=== PATIENT | male | born 1975 | race Caucasian/White ===

== ENCOUNTER 2024-09-06 10:30 | Outpatient (OUT) | payer OTHER, SELFPAY ==
--- NOTE | 2024-09-06 10:45 | XR_ITS ---
The [address] [address] Patient Name: NAI STORM MRN: [id number] date: 1975 Sex: M Assigned Patient Location: LAB Current Patient Location: Accession/Order Number: [id number] Exam Date: 09/06/2024 10:48 Report Date: 09/08/2024 04:42 At the request of: DAE LUNA Procedure: XR abdomen 1V EXAMINATION: XR abdomen 1V HISTORY: Left Upper Quadrant Pain COMPARISON: No relevant comparison available. FINDINGS: BOWEL GAS PATTERN: No abnormal dilation or deviation. Moderate stool burden. CALCIFICATIONS: 2 small calcifications within lower right pelvis; phleboliths versus distal ureteral stones. OTHER: Negative. No abnormal gaseous collections. XR/XR abdomen 1V IMPRESSION: 1. Normal bowel gas pattern. No obstruction or ileus. 2. Moderate stool burden. 3. Right pelvic phleboliths versus distal ureteral stones (3 mm). No prior studies for comparison. Electronically authenticated by: INDIA PEÑA Date: 09/08/2024 04:42
== END 2024-09-06 10:31 | disposition home or self-care (01) ==
LOC: LAB 10:40
PROVIDERS: PCP Nurse Practitioner Family; Visit Provider Nurse Practitioner Family
DX: R10.12 Left upper quadrant pain (principal); I87.8 Other specified disorders of veins; I86.2 Pelvic varices
CPT/HCPCS: 74018

== ENCOUNTER 2024-09-07 10:58 | Outpatient (OUT) | payer OTHER, SELFPAY ==
[2024-09-07 11:16] LABS: Basophils Absolute Auto 0.1 10^3/uL (0.0-0.1); Basophils Percent Auto 0.7 % (0.2-2.0); Eosinophils Absolute Auto 0.3 10^3/uL (0.0-0.7); Eosinophils Percent Auto 2.4 % (0.9-7.0); Hematocrit 43.1 % (42.0-54.0); Hemoglobin 14.4 g/dL (14.0-18.0); Immature Granulocytes Abs Auto 0.03 10^3/uL (0.00-0.03); Immature Granulocytes Pct Auto 0.2 % (0.0-0.5); Lymphocytes Absolute Auto 4.9 10^3/uL (1.2-3.8); Lymphocytes Percent Auto 37.1 % (20.5-60.0); Mean Corpuscular HGB Conc 33.4 g/dL (29.9-35.2); Mean Corpuscular Hemoglobin 30.3 pg (25.9-34.0); Mean Corpuscular Volume 90.5 fL (80.0-94.0); Mean Platelet Volume 8.9 fL (9.5-13.5); Monocytes Absolute Auto 1.1 10^3/uL (0.3-0.8); Monocytes Percent Auto 8.4 % (1.7-12.0); Neutrophils Absolute Auto 6.8 10^3/uL (1.4-6.5); Neutrophils Percent Auto 51.2 % (43.0-75.0); Platelet Count 324 10^3/uL (150-450); Red Blood Count 4.76 10^6/uL (4.70-6.10); White Blood Count 13.2 10^3/uL (4.0-11.0)
[2024-09-07 11:33] LABS: Estimated Average Glucose 111 mg/dL; Glycohemoglobin A1C 5.5 % (4.5-6.2)
[2024-09-07 12:00] LABS: Alanine Aminotransferase 19 U/L (16-63); Albumin Globulin Ratio 0.9; Albumin Level 3.2 g/dL (3.4-5.0); Alkaline Phosphatase 73 U/L (46-116); Amylase 67 U/L (25-115); Anion Gap 9.4; Aspartate Amino Transferase 16 U/L (15-37); BUN Creatinine Ratio 10.6; Bilirubin Total 0.6 mg/dL (0.2-1.0); Calcium 8.3 mg/dL (8.5-10.1); Carbon Dioxide 30.3 mmol/L (21.0-32.0); Chloride 107 mmol/L (98-107); Chol HDL Ratio 4.9; Cholesterol 177 mg/dL (<=200); Estimated GFR (African America >60 (>=60 mL/min/1.73m^2); Estimated GFR (Non-African Ame >60 (>=60 mL/min/1.73m^2); Free T3 2.45 pg/mL (2.18-3.98); Globulin 3.4 g/dL; Glucose 89 mg/dL (74-106); HDL Cholesterol 36 mg/dL (40-60); Potassium 3.7 mmol/L (3.5-5.1); Prostate Specific Antigen Scrn 0.81 ng/mL (<=4.00); Sodium 143 mmol/L (136-145); Total Protein 6.6 g/dL (6.4-8.2); Triglycerides 136 mg/dL (<=150); Uric Acid 3.7 mg/dL (3.5-7.2); VLDL CHOLESTEROL 27.2 mg/dL
[2024-09-08 11:08] LABS: Insulin 8.5 uIU/mL (2.6-24.9)
== END 2024-09-07 10:59 | disposition home or self-care (01) ==
LOC: LAB 10:58
PROVIDERS: PCP Nurse Practitioner Family; Visit Provider Nurse Practitioner Family
DX: Z00.00 Encounter for general adult medical examination without abnormal findings (principal); R10.12 Left upper quadrant pain
CPT/HCPCS: 36415; 80053; 80061; 82150; 83036; 83525; 83690; 84436; 84443; 84481; 84550; 85025; G0103

== ENCOUNTER 2024-10-29 09:46 | Outpatient (OUT) | payer OTHER, SELFPAY ==
--- NOTE | 2024-10-29 09:50 | US_ITS ---
[address] [address] Patient Name: NAI STORM MRN: [id number] date: 1975 Sex: M Assigned Patient Location: US Current Patient Location: Accession/Order Number: [id number] Exam Date: 10/29/2024 10:00 Report Date: 10/29/2024 10:52 At the request of: DAE LUNA Procedure: US abdomen complete EXAMINATION: US abdomen complete HISTORY: Left Upper Quadrant Abdominal Pain COMPARISON: No relevant comparison available. FINDINGS: The liver is normal in size, contour and echotexture. Hepatopedal flow in the main portal vein The gallbladder is normal. The wall measures 1.7 mm. the common bile duct measures 3 mm. Negative sonographic Cota sign The visualized pancreas is normal The right kidney is normal measuring 11.6 x 5.7 x 4.8 cm The left kidney is normal measuring 9.1 x 5.7 x 6.0 cm Visualized proximal aorta and IVC are normal The spleen measures 9.2 cm US/US abdomen complete IMPRESSION: No acute abnormality Electronically authenticated by: OSMAR WALTER Date: 10/29/2024 10:52
--- NOTE | 2024-10-29 09:50 | XR_ITS ---
The [address] [address] Patient Name: NAI STORM MRN: [id number] date: 1975 Sex: M Assigned Patient Location: Current Patient Location: Accession/Order Number: [id number] Exam Date: 10/29/2024 10:00 Report Date: 10/30/2024 09:55 At the request of: DAE LUNA Procedure: XR shoulder RT min 2V PROCEDURE: XR shoulder RT min 2V HISTORY: Right Shoulder Pain COMPARISON: None. FINDINGS: BONES:Slight widening of the acromioclavicular joint, 11 mm. No undersurface osteophytes or appreciable fracture. Unremarkable humeral head and glenohumeral joint. SOFT TISSUES:No visible soft tissue swelling. EFFUSION:None visible. OTHER: Negative. XR/XR shoulder RT min 2V IMPRESSION: 1. Borderline widening of the acromioclavicular joint; acute versus chronic strain? 2. No fracture or dislocation. 3. No significant degenerative joint disease. Electronically authenticated by: INDIA PEÑA Date: 10/30/2024 09:55
--- OUTSIDE RECORDS SUMMARY | 2024-10-29 10:04 | XMS_ITS | CCD ---
Author Organization [facility] Care Team Providers Care Contact Center Manager Name Role Phone Kevin Messina Unavailable DR AAMIR HUNTER Admitting Unavailable DALE, DR AAMIR Sainz Attending Unavailable OBBRANDO, DR ARNDT Primary Care Unavailable DALE, DR AAMIR Sainz Consulting Unavailable SIDDHARTH, DR ARNDT Primary Care Unavailable ROBBI ., THU Admitting Unavailable ROBBI ., THU Attending Unavailable CASEY, DR INDIA Sainz Consulting Unavailable MARY ., PENNIE LARSON Consulting Unavailabl e SIDDHARTH, DR ARNDT Primary Care Unavailable SANDRITA FERRARA Admitting Unavailable SANDRITA FERRARA Attending Unavailable SANDRITA FERRARA Consulting Unavailable ObererKevin Primary Care Unavailable Kevin Messina Attending Unavailable Objoanner Kevin Admitting Unavailable Kevin Messina Attending Unavailable Siddharth Kevin Admitting Unavailable Objoanner Kevin Primary Care Unavailable DO Kevin Messina Primary Care Provider DO Kevin Messina Attending Provider [phone] Medications Current Medications Medication Drug Class(es) Dates Sig (Normalized) Sig (Original) Acetaminophen (4 sources) Acetaminophen Ac tive Problems Active Problems Problem Classification Problem Date Documented Date Episodic/Chronic Adjustment disorders (8 sources) Adjustment disorder with mixed emotional features; Translations: [Adjustment disorder with mixed anxiety and depressed mood] Chronic Anxiety disorders (6 sources) Panic disorder; Translations: [Panic disorder [episodic paroxysmal anxiety]] Chronic Diabetes mellitus without complication (4 sources) Impaired fasting glucose; Translations: [Hyperglycemia] Episodic Disorders of lipid metabolism (8 sources) Hypercholesterolemia; Translations: [Pure hypercholesterolemia, unspecified] Chronic E Codes: Natural/environment (1 source) Exposure to other specified factors, initial encounter; Translations: [EXPOSURE OTHER SPEC FACTORS INITIAL] Onset: 12-05-2022 Episodic Esophageal disorders (3 sources) Gastroesophageal reflux disease; Translations: [Gastro-esophageal reflux disease without esophagitis] Chronic Essential hypertension (3 sources) Elevated blood pressure; Translations: [Essential (primary) hypertension] Chronic Headache; including migraine (10 sources) Cluster headache; Translations: [Cluster headache syndrome, unspecified, not intractable] Chronic Other circulatory disease (1 source) Hemorrhage, not elsewhere classified Episodic Other connective tissue disease (3 sources) Disorder of rotator cuff; Translations: [Unspecified rotator cuff tear or rupture of right shoulder, not specified as traumatic] Episodic Other disorders of stomach and duodenum (3 sources) Nonulcer dyspepsia; Translations: [Functional dyspepsia] Episodic Other nutritional; endocrine; and metabolic disorders (1 source) Abnormal weight gain Episodic Other skin disorders (3 sources) Acne vulgaris; Translations: [Acne vulgaris] Episodic Other upper respiratory disease (3 sources) Allergic rhinitis due to pollen; Translations: [Allergic rhinitis due to pollen] Chronic Residual codes; unclassified (7 sources) FH: Cardiovascular disease; Translations: [Family history of ischemic heart disease and other diseases of the circulatory system] Episodic Residual codes; unclassified (3 sources) Family history of ischemic heart disease and other diseases of the circulatory system Onset: 12-14-2021 Resolved: 12-14-2021 Episodic Residual codes; unclassified (5 sources) Family history of ischemic heart disease; Translations: [Family history of ischemic heart disease and other diseases of the circulatory system] Episodic Spondylosis; intervertebral disc disorders; other back problems (20 sources) Lumbar spondylosis; Translations: [Spondylosis without myelopathy or radiculopathy, lumbar region] Onset: 12-14-2021 Resolved: 12-14-2021 Chronic Spondylosis; intervertebral disc disorders; other back problems (3 sources) Lumbago with sciatica, right side; Translations: [Cervicalgia] Onset: 06-14-2022 Episodic Substance-related disorders (13 sources) Smoker; Translations: [Nicotine dependence, unspecified, uncomplicated] Onset: 12-14-2021 Resolved: 12-16-2021 Chronic Superficial injury; contusion (4 sources) Contusion of left forearm, initial encounter; Translations: [CONTUSION LEFT FOREARM INITIAL ENC] Onset: 12-04-2022 Episodic Unclassified (2 sources) LOW BACK PAIN, UNSPECIFIED; Translations: [LOW BACK PAIN, UNSPECIFIED] Onset: 06-14-2022 Unclassified (1 source) Encounter for general adult medical examination without abnormal findings; Translations: [Encounter for general adult medical examination without abnormal findings] Onset: 12-26-2022 Unclassified (1 source) Z82.49 - Family history of ischemic heart disease and other diseases of the circulatory system; Translations: [Z82.49 - Family history of ischemic heart disease and other diseases of the circulatory system] Onset: 01-12-2022 Past or Other Problems Problem Classification Problem Date Documented Da te Episodic/Chronic Other upper respiratory infections (4 sources) Acute pharyngitis, unspecified; Translations: [ACUTE PHARYNGITIS UNSPECIFIED] Onset: 01-19-2022 Episodic Unclassified (2 sources) Cough R05.9 Onset: 12-14-2021 Resolved: 12-16-2021 Unclassified (1 source) LOW BACK PAIN, UNSPECIFIED; Translations: [LOW BACK PAIN, UNSPECIFIED] Onset: 06-10-2022 Results Test Name Value Interpretation Reference Range Facility A1C with Estimated Average G [facility] 12-26-2022 Glucose [Mass/Vol] 114 mg/dL Normal [facility] Comment on above: Order Comment: Reaso n for Exam Adult general medical examination Result Comment: PERF ORMED BY: [facility] [address] [place] [address] PATHOLOGIST BUSINESS MANAGEMENT INTERN MOISES SHEPHERD M.D. Performed By: #### A 1C [facility] eA ####[place] [id number] [place] [id number] [facility] HbA1c (Bld) [Mass fraction] 5.6 % Normal 4.3-5.6 [facility] Comment on above: Order Comment: Reaso n for Exam Adult general medical examination Result Comment: Incr eased risk for diabetes: 5.7 - 6.4 diabetes: >6.4 glycemic control for adults with diabetes: <7.0 Performed By: #### A 1C [facility] eA ####[place] [id number] [place] [id number] [facility] Alanine aminotransferase [En zymatic activity/volume] in Serum or PlasmaOrdered By: Kevin Messina on 12-26-2022 ALT [Catalytic activity/Vol] 36 U/L 7- [facility] Albumin [Mass/volume] in Ser um or Plasma by Bromocresol green (BCG) dye binding methoOrdered By: Kevin Messina on 12-26-2022 Albumin BCG dye [Mass/Vol] 4.3 g/dL 3.5-5.7 [facility] Alkaline phosphatase [Enzyma tic activity/volume] in Serum or PlasmaOrdered By: Kevin Messina on 12-26-2022 ALP [Catalytic activity/Vol] 66 U/L 34-104 [facility] Aspartate aminotransferase [ Enzymatic activity/volume] in Serum or PlasmaOrdered By: Kevin Messina on 12-26-2022 AST [Catalytic activity/Vol] 23 U/L 13-39 [facility] Basic Metabolic Panelon 12-01 Anion gap [Moles/Vol] 9.0 mmol/L Normal 6.0-15.0 [facility] Comment on above: Order Comment: NOT F ASTING Reason for Exam Adult general medical examination Performed By: #### B MP, HEPATIC, LIPID #### [facility] [address] [place] [id number] [facility] Calcium [Mass/Vol] 8.9 mg/dL Normal 8.6-10.3 [facility] Comment on above: Order Comment: NOT F ASTING Reason for Exam Adult general medical examination Performed By: #### B MP, HEPATIC, LIPID #### [facility] [address] [place] [address] [place] Chloride [Moles/Vol] 106 mmol/L Normal 98-107 [facility] Comment on above: Order Comment: NOT F ASTING Reason for Exam Adult general medical examination Performed By: #### B MP, HEPATIC, LIPID #### [facility] [address] [place] [address] [place] CO2 [Moles/Vol] 27.9 mmol/L Normal 21.0-31.0 [facility] Comment on above: Order Comment: NOT F ASTING Reason for Exam Adult general medical examination Performed By: #### B MP, HEPATIC, LIPID #### [facility] [address] [place] [address] [place] Creatinine [Mass/Vol] 0.82 mg/dL Normal 0.70-1.30 [facility] Comment on above: Order Comment: NOT F ASTING Reason for Exam Adult general medical examination Performed By: #### B MP, HEPATIC, LIPID #### [facility] [address] [place] [address] [place] GFR/1.73 sq M.predicted MDRD (S/P/Bld) [Vol rate/Area] mL/min/{1.73_m2} Normal [facility] Comment on above: Order Comment: NOT F ASTING Reason for Exam Adult general medical examination Performed By: #### B MP, HEPATIC, LIPID #### [facility] [address] Glucose [Mass/Vol] 96 mg/dL Normal 70-100 [facility] Comment on above: Order Comment: NOT F ASTING Reason for Exam Adult general medical examination Result Comment: [facility] Glucose Reference Range is dependent on time and content of last meal. Glucose of more than 200 mg/dL in a nonstressed, ambulatory subject supports the diagnosis of Diabetes Mellitus. ADA recommended reference range Performed By: #### B MP, HEPATIC, LIPID #### [facility] [address] [place] [address] [place] Potassium [Moles/Vol] 3.9 mmol/L Normal 3.5-5.1 [facility] Comment on above: Order Comment: NOT F ASTING Reason for Exam Adult general medical examination Performed By: #### B MP, HEPATIC, LIPID #### [facility] [address] [place] [id number] [place] Sodium [Moles/Vol] 139 mmol/L Normal 136-145 [facility] Comment on above: Order Comment: NOT F ASTING Reason for Exam Adult general medical examination Performed By: #### B MP, HEPATIC, LIPID #### [facility] [address] [place] [id number] [place] Urea nitrogen [Mass/Vol] 11 mg/dL Normal 7-25 [facility] Comment on above: Order Comment: NOT F ASTING Reason for Exam Adult general medical examination Performed By: #### B MP, HEPATIC, LIPID #### [facility] [address] [place] [id number] [facility] Basophils Auto (Bld) [#/Vol] Ordered By: Kevin Messina on 12-26-2022 Basophils (Bld) [#/Vol] 0.1 10*3/uL 0.0-0.2 [facility] Basophils/100 WBC Auto (Bld) Ordered By: Kevin Messina on 12-26-2022 Basophils/100 WBC (Bld) 0.7 % . [facility] Bilirubin.direct [Mass/volum e] in Serum or PlasmaOrdered By: Kevin Messina on 12-26-2022 Bilirubin.direct [Mass/Vol] 0.10 mg/dL 0.03-0.18 [facility] Bilirubin.total [Mass/volume ] in Serum or PlasmaOrdered By: Kevin Messina on 12-26-2022 Bilirubin [Mass/Vol] 0.3 mg/dL 0.3-1.0 [facility] Calcium [Mass/volume] in Ser um or PlasmaOrdered By: Kevin Messina on 12-26-2022 Calcium [Mass/Vol] 8.9 mg/dL 8.6-10.3 [facility] Carbon dioxide, total [Moles /volume] in Serum or PlasmaOrdered By: Kevin Messina on 12-26-2022 CO2 [Moles/Vol] 27.9 mmol/L 21.0-31.0 [facility] Chloride [Moles/volume] in S samuel or PlasmaOrdered By: Kevin Messina on 12-26-2022 Chloride [Moles/Vol] 106 mmol/L 98-107 [facility] Cholesterol [Mass/volume] in Serum or PlasmaOrdered By: Kevin Messina on 12-26-2022 Cholesterol [Mass/Vol] 217 mg/dL 140-200 [facility] Comment on above: Chol less than 200 m g/dl low riskChol 201-239 mg/dl borderline riskChol 240 mg/dl and greater high risk Cholesterol in LDL Calc [Mas s/Vol]Ordered By: Kevin Messina on 12-26-2022 Cholesterol in LDL [Mass/Vol] 145 mg/dL 0-100 [facility] Comment on above: LDL ATP III CLASSIFI CATIONLDL less than 100 mg/dL OptimalLDL 100-129 mg/dL Near or above optimalLDL 130-159 mg/dL Borderline highLDL 160-189 mg/dL HighLDL greater than 189 mg/dL Very high Cholesterol in VLDL Calc [Ma ss/Vol]Ordered By: Kevin Messina on 12-26-2022 Cholesterol in VLDL [Mass/Vol] 29 mg/dL [facility] Complete Blood Count Auto Di ffon 12-26-2022 Basophils (Bld) [#/Vol] 0.1 10*3/uL Normal 0.0-0.2 [facility] Comment on above: Order Comment: Reaso n for Exam Adult general medical examination Result Comment: PERF ORMED BY: [place] [address] PATHOLOGIST BUSINESS MANAGEMENT INTERN MOISES SHEPHERD M.D. Performed By: #### C BC #### [address] Basophils/100 WBC (Bld) 0.7 % Normal . F [facility] Comment on above: Order Comment: Reaso n for Exam Adult general medical examination Performed By: #### C BC #### [facility] [address] [place] [address] Eosinophils (Bld) [#/Vol] 0.4 10*3/uL Normal 0.0-0.45 [facility] Comment on above: Order Comment: Reaso n for Exam Adult general medical examination Performed By: #### C BC #### [facility] [address] [place] [address] Eosinophils/100 WBC (Bld) 3.2 % Normal . [facility] Comment on above: Order Comment: Reaso n for Exam Adult general medical examination Performed By: #### C BC #### [address] Erythrocyte distribution width (RBC) [Ratio] 14.2 % Normal 12.0-14.8 [facility] Comment on above: Order Comment: Reaso n for Exam Adult general medical examination Performed By: #### C BC #### [address] Hematocrit (Bld) [Volume fraction] 44.8 % Normal 38.8-50.0 [facility] Comment on above: Order Comment: Reaso n for Exam Adult general medical examination Performed By: #### C BC #### [address] Hemoglobin (Bld) [Mass/Vol] 14.9 g/dL Normal 13.0-17.0 [facility] Comment on above: Order Comment: Reaso n for Exam Adult general medical examination Performed By: #### C BC #### [address] Lymphocytes (Bld) [#/Vol] 3.1 10*3/uL Normal 1.00-4.8 [facility] Comment on above: Order Comment: Reaso n for Exam Adult general medical examination Performed By: #### C BC #### [address] Lymphocytes/100 WBC (Bld) 27.1 % Normal . [facility] Comment on above: Order Comment: Reaso n for Exam Adult general medical examination Performed By: #### C BC #### [address] MCH (RBC) [Entitic mass] 30.0 pg Normal 27.5-35.2 [facility] Comment on above: Order Comment: Reaso n for Exam Adult general medical examination Performed By: #### C BC #### [address] MCV (RBC) [Entitic vol] 90.2 fL Normal 83.5-[address] [facility] Comment on above: Order Comment: Reaso n for Exam Adult general medical examination Performed By: #### C BC #### [address] Mean Corpuscular HGB Conc 33.2 g/dL Normal 32.5-35.6 [facility] Comment on above: Order Comment: Reaso n for Exam Adult general medical examination Performed By: #### C BC #### [address] [place] [address] [place] Monocytes (Bld) [#/Vol] 1.0 10*3/uL High 0.0-0.8 [facility] Comment on above: Order Comment: Reaso n for Exam Adult general medical examination Performed By: #### C BC #### [facility] [address] [place] [address] Monocytes/100 WBC (Bld) 8.6 % Normal . [facility] Comment on above: Order Comment: Reaso n for Exam Adult general medical examination Performed By: #### C BC #### [facility] [address] [place] [address] Neutrophils (Bld) [#/Vol] 7.0 10*3/uL Normal 1.8-7.7 [facility] Comment on above: Order Comment: Reaso n for Exam Adult general medical examination Performed By: #### C BC #### [facility] [address] [place] [address] [place] Neutrophils/100 WBC (Bld) 60.4 % Normal . [facility] Comment on above: Order Comment: Reaso n for Exam Adult general medical examination Performed By: #### C BC #### [facility] [address] [place] [address] NRBC% 0.1 /100{WBC} Normal 0-0.5 [facility] Comment on above: Order Comment: Reaso n for Exam Adult general medical examination Performed By: #### C BC #### [facility] [address] [place] [address] [place] Platelet mean volume (Bld) [Entitic vol] 7.2 fL Normal 6.6-10.1 [facility] Comment on above: Order Comment: Reaso n for Exam Adult general medical examination Performed By: #### C BC #### [facility] [address] [place] [address] [place] Platelets (Bld) [#/Vol] 307 10*3/uL Normal 150-450 [facility] Comment on above: Order Comment: Reaso n for Exam Adult general medical examination Performed By: #### C BC #### [address] [place] [address] [place] RBC (Bld) [#/Vol] 4.97 10*6/uL Normal 3.90-5.60 [facility] Comment on above: Order Comment: Reaso n for Exam Adult general medical examination Performed By: #### C BC #### [facility] [address] WBC (Bld) [#/Vol] 11.5 10*3/uL High 4.1-10.5 [facility] Comment on above: Order Comment: Reaso n for Exam Adult general medical examination Performed By: #### C BC #### [facility] [address] Creatinine [Mass/volume] in Serum or PlasmaOrdered By: Kevin Messina on 12-26-2022 Creatinine [Mass/Vol] 0.82 mg/dL 0.70-1.30 [facility] Eosinophils Auto (Bld) [#/Vo l]Ordered By: Kevin Messina on 12-26-2022 Eosinophils (Bld) [#/Vol] 0.4 10*3/uL 0.0-0.45 [facility] Eosinophils/100 WBC Auto (Bl d)Ordered By: Kevin Messina on 12-26-2022 Eosinophils/100 WBC (Bld) 3.2 % . [facility] Erythrocyte distribution wid th Auto (RBC) [Ratio]Ordered By: Kevin Messina on 12-26-2022 Erythrocyte distribution width (RBC) [Ratio] 14.2 % 12.0-14.8 [facility] Globulin Calc (S) [Mass/Vol] Ordered By: Kevin Messina on 12-26-2022 Globulin (S) [Mass/Vol] 2.6 g/dL [facility] Glucose [Mass/volume] in Ser um or PlasmaOrdered By: Kevin Messina on 12-26-2022 Glucose [Mass/Vol] 96 mg/dL 70-100 [facility] Comment on above: ADA recommended refe rence rangeRandom Glucose Reference Range is dependent on time and content of last meal. Glucose of more than 200 mg/dL in a nonstressed, ambulatory subject supports the diagnosis of Diabetes Mellitus. Hematocrit Auto (Bld) [Volum e fraction]Ordered By: Kevin Messina on 12-26-2022 Hematocrit (Bld) [Volume fraction] 44.8 % 38.8-50.0 [facility] Hemoglobin [Mass/volume] in BloodOrdered By: Kevin Messina on 12-26-2022 Hemoglobin (Bld) [Mass/Vol] 14.9 g/dL 13.0-17.0 [facility] Hepatic Panelon 12-26-2022 Albumin [Mass/Vol] 4.3 g/dL Normal 3.5-5.7 [facility] Comment on above: Order Comment: NOT F ASTING Reason for Exam Adult general medical examination Performed By: #### B MP, HEPATIC, LIPID #### [facility] [address] Albumin/Globulin [Mass ratio] 1.7 {ratio} Normal [facility] Comment on above: Order Comment: NOT F ASTING Reason for Exam Adult general medical examination Performed By: #### B MP, HEPATIC, LIPID #### [facility] [address] [place] [address] [place] ALP [Catalytic activity/Vol] 66 U/L Normal 34-104 [facility] Comment on above: Order Comment: NOT F ASTING Reason for Exam Adult general medical examination Performed By: #### B MP, HEPATIC, LIPID #### [facility] [address] [place] [address] [place] ALT [Catalytic activity/Vol] 36 U/L Normal 7-52 [facility] Comment on above: Order Comment: NOT F ASTING Reason for Exam Adult general medical examination Performed By: #### B MP, HEPATIC, LIPID #### [facility] [address] [place] [address] [place] AST [Catalytic activity/Vol] 23 U/L Normal 13-39 [facility] Comment on above: Order Comment: NOT F ASTING Reason for Exam Adult general medical examination Performed By: #### B MP, HEPATIC, LIPID #### [facility] [address] [place] [address] [place] Bilirubin [Mass/Vol] 0.3 mg/dL Normal 0.3-1.0 [facility] Comment on above: Order Comment: NOT F ASTING Reason for Exam Adult general medical examination Performed By: #### B MP, HEPATIC, LIPID #### [facility] [address] Bilirubin,Indirect 0.2 mg/dL Normal [facility] Comment on above: Order Comment: NOT F ASTING Reason for Exam Adult general medical examination Performed By: #### B MP, HEPATIC, LIPID #### [facility] [address] Bilirubin.indirect [Mass/Vol] 0.10 mg/dL Normal 0.03-0.18 [facility] Comment on above: Order Comment: NOT F ASTING Reason for Exam Adult general medical examination Performed By: #### B MP, HEPATIC, LIPID #### [address] Globulin (S) [Mass/Vol] 2.6 g/dL Normal F [facility] Comment on above: Order Comment: NOT F ASTING Reason for Exam Adult general medical examination Performed By: #### B MP, HEPATIC, LIPID #### [address] Protein [Mass/Vol] 6.9 g/dL Normal 6.4-8.9 [facility] Comment on above: Order Comment: NOT F ASTING Reason for Exam Adult general medical examination Performed By: #### B MP, HEPATIC, LIPID #### [address] Laboratory - Chemistry and C hemistry - challengeOrdered By: Kevin Messina on 12-26-2022 GFR/1.73 sq M.predicted MDRD (S/P/Bld) [Vol rate/Area] mL/min/{1.73_m2} [facility] Leukocytes [#/volume] correc nina for nucleated erythrocytes in Blood by Automated counOrdered By: Kevin Messina on 12-26-2022 WBC corrected for nucl RBC Auto (Bld) [#/Vol] 11.5 10*3/uL 4.1-10.5 [facility] Lipid Panelon 12-26-2022 Cholesterol [Mass/Vol] 217 mg/dL High 140-200 [facility] Comment on above: Order Comment: NOT F ASTING Reason for Exam Adult general medical examination Result Comment: Chol less than 200 mg/dl low risk Chol 201-239 mg/dl borderline risk Chol 240 mg/dl and greater high risk Performed By: #### B MP, HEPATIC, LIPID #### [facility] [address] [place] [id number] [facility] Cholesterol in HDL [Mass/Vol] 43 mg/dL Normal 29-71 [facility] Comment on above: Order Comment: NOT F ASTING Reason for Exam Adult general medical examination Result Comment: HDL CHOL ATP-III CLASSIFICATION Cardiovascular Risk HDL > or equal to 60 mg/dL LOW HDL < 40 mg/dL HIGH Performed By: #### B MP, HEPATIC, LIPID #### [facility] [address] Cholesterol.total/Choles terol in HDL [Mass ratio] 5.0 {ratio} Normal <5.0 [facility] Comment on above: Order Comment: NOT F ASTING Reason for Exam Adult general medical examination Result Comment: PERF ORMED BY: [place] [address] PATHOLOGIST BUSINESS MANAGEMENT INTERN MOISES SHEPHERD M.D. Performed By: #### B MP, HEPATIC, LIPID #### [facility] [address] [place] [address] [facility] LDL Cholesterol,Calculated 145 mg/dL High 0-100 [facility] Comment on above: Order Comment: NOT F ASTING Reason for Exam Adult general medical examination Result Comment: LDL ATP III CLASSIFICATION LDL less than 100 mg/dL Optimal LDL 100-129 mg/dL Near or above optimal LDL 130-159 mg/dL Borderline high LDL 160-189 mg/dL High LDL greater than 189 mg/dL Very high Performed By: #### B MP, HEPATIC, LIPID #### [facility] [address] [place] [id number] [place] Triglyceride w/Reflex 145 mg/dL Normal 0-149 [facility] Comment on above: Order Comment: NOT F ASTING Reason for Exam Adult general medical examination Result Comment: TRIG ATP III CLASSIFICATION TRIG less than 150 mg/dL Normal TRIG 150-199 mg/dL Borderline high TRIG 200-500 mg/dL High TRIG greater than 500 mg/dL Very high Standard traceable to the Center for Disease Conrtrol and Prevention (CDC) test method. Performed By: #### B MP, HEPATIC, LIPID #### [facility] [address] VLDL CHOLESTEROL 29 mg/dL Normal [facility] [facility] Comment on above: Order Comment: NOT F ASTING Reason for Exam Adult general medical examination Performed By: #### B MP, HEPATIC, LIPID #### [facility] [address] Lymphocytes Auto (Bld) [#/Vo l]Ordered By: Kevin Messina on 12-26-2022 Lymphocytes (Bld) [#/Vol] 3.1 10*3/uL 1.00-4.8 [facility] Lymphocytes/100 WBC Auto (Bl d)Ordered By: Kevin Messina on 12-26-2022 Lymphocytes/100 WBC (Bld) 27.1 % . [facility] MCH Auto (RBC) [Entitic mass ]Ordered By: Kevin Messina on 12-26-2022 MCH (RBC) [Entitic mass] 30.0 pg 27.5-35.2 [facility] MCHC Auto (RBC) [Mass/Vol]Or dered By: Kevin Messina on 12-26-2022 MCHC (RBC) [Mass/Vol] 33.2 g/dL 32.5-35.6 [facility] MCV Auto (RBC) [Entitic vol] Ordered By: Kevin Messina on 12-26-2022 MCV (RBC) [Entitic vol] 90.2 fL 83.5-[address] [facility] Monocytes Auto (Bld) [#/Vol] Ordered By: Kevin Messina on 12-26-2022 Monocytes (Bld) [#/Vol] 1.0 10*3/uL 0.0-0.8 [facility] Monocytes/100 WBC Auto (Bld) Ordered By: Kevin Messina on 12-26-2022 Monocytes/100 WBC (Bld) 8.6 % . F [facility] Neutrophils Auto (Bld) [#/Vo l]Ordered By: Kevin Messina on 12-26-2022 Neutrophils (Bld) [#/Vol] 7.0 10*3/uL 1.8-7.7 [facility] Neutrophils/100 WBC Auto (Bl d)Ordered By: Kevin Messina on 12-26-2022 Neutrophils/100 WBC (Bld) 60.4 % . [facility] No Panel InformationOrdered By: Kevin Messina on 12-26-2022 Pharmacy Creatinine Clearance (Chem N/A [facility] Nucleated erythrocytes [Pres ence] in Blood by Automated countOrdered By: Kevin Messina on 12-26-2022 Nucleated RBC Auto Ql (Bld) 0.1 /100{WBC} 0-0.5 [facility] Platelet mean volume Auto (B ld) [Entitic vol]Ordered By: Kevin Messina on 12-26-2022 Platelet mean volume (Bld) [Entitic vol] 7.2 fL 6.6-10.1 [facility] Platelets Auto (Bld) [#/Vol] Ordered By: Kevin Messina on 12-26-2022 Platelets (Bld) [#/Vol] 307 10*3/uL 150-450 [facility] Potassium [Moles/volume] in Serum or PlasmaOrdered By: Kevin Messina on 12-26-2022 Potassium [Moles/Vol] 3.9 mmol/L 3.5-5.1 [facility] Protein [Mass/volume] in Ser um or PlasmaOrdered By: Kevin Messina on 12-26-2022 Protein [Mass/Vol] 6.9 g/dL 6.4-8.9 [facility] RBC Auto (Bld) [#/Vol]Ordere d By: Kevin Messina on 12-26-2022 RBC (Bld) [#/Vol] 4.97 10*6/uL 3.90-5.60 [facility] Serum or plasma albumin/glob ulin mass ratioOrdered By: Kevin Messina on 12-26-2022 Albumin/Globulin [Mass ratio] 1.7 {ratio} [facility] Serum or plasma anion gap de terminationOrdered By: Kevin Messina on 12-26-2022 Anion gap [Moles/Vol] 9.0 mmol/L 6.0-15.0 [facility] Serum or plasma high density lipoprotein (HDL) cholesterol measurementOrdered By: Kevin Messina on 12-26-2022 Cholesterol in HDL [Mass/Vol] 43 mg/dL 29- [facility] Comment on above: HDL CHOL ATP-III CLA SSIFICATION Cardiovascular RiskHDL > or equal to 60 mg/dL LOWHDL < 40 mg/dL HIGH Serum or plasma non-glucuron idated bilirubin measurement (mass/volume)Ordered By: Kevin Messina on 12-26-2022 Bilirubin.indirect [Mass/Vol] 0.2 mg/dL [facility] Serum or plasma total choles terol/high density lipoprotein (HDL) cholesterol mass ratOrdered By: Kevin Messina on 12-26-2022 Cholesterol.total/Choles terol in HDL [Mass ratio] 5.0 {ratio} <5.0 [facility] Sodium [Moles/volume] in Ser um or PlasmaOrdered By: Kevin Messina on 12-26-2022 Sodium [Moles/Vol] 139 mmol/L 136-145 [facility] Triglyceride [Mass/volume] i n Serum or PlasmaOrdered By: Kevin Messina on 12-26-2022 Triglyceride [Mass/Vol] 145 mg/dL 0-[address] [facility] Comment on above: TRIG ATP III CLASSIF ICATIONTRIG less than 150 mg/dL NormalTRIG 150-199 mg/dL Borderline highTRIG 200-500 mg/dL High TRIG greater than 500 mg/dL Very highStandard traceable to the Center for Disease Conrtrol and Prevention (CDC) test method. Urea nitrogen [Mass/volume] in Serum or PlasmaOrdered By: Kevin Messina on 12-26-2022 Urea nitrogen [Mass/Vol] 11 mg/dL 7- [facility] WBC Auto (Bld) [#/Vol]Ordere d By: Kevin Messina on 12-26-2022 WBC (Bld) [#/Vol] 11.5 10*3/uL 4.1-10.5 [facility] XR cervical spine LAT/FLX/EX Ton 12-26-2022 XR cervical spine LAT/FLX/EXT [facility] [place] [address] XRay Report Signed Patient: Segun Fuentes MR#: [id number] 450 : 1975 Acct:[id number] Age/Sex: 47 / M ADM Date: 12/26/22 Loc: XDS Room: Type: [facility] Attending Dr: Kevin Messina DO Copies to: Kevin Messina DO Ordering Provider: Kevin Messina DO Date of Service: 12/26/22 XR/XR cervical spine LAT/FLX/EXT: Cervical spine pain XR cervical spine LAT/FLX/EXT 12/26/2022 2:20 PM SIGNS AND SYMPTOMS: Numbness and tingling in the bilateral hands PROTOCOLS: Lateral flexion-extension views of the cervical spine COMPARISON: 02/26/2019 FINDINGS: The bones are in anatomic alignment. There is preservation of the vertebral body heights and intervertebral disc spaces. Uncovertebral joint spurring is redemonstrated at C4-C5. There is no fracture or destructive lesion. Flexion and extension views show no pathologic movement. XR/XR cervical spine LAT/FLX/EXT IMPRESSION: Uncovertebral joint spurring is redemonstrated at C4-C5. No fracture or subluxation. No pathologic movement. Impression dictated by: Aamir Joseph M.D.12/26/2022 4:37 PM Dictation Location: [place] [address] Transcribed By: [facility] 12/26/22 1637 Dictated By: Aamir Joseph II, MD 12/26/22 1634 Signed By: 12/26/22 1637 Normal [facility] CBC AUTO DIFFon 12-04-2022 BASO # 0.1 103/ul Normal 0.0-0.1 [facility] Comment on above: Performed By: #### C BC #### [facility] [address] [address] [address] Mireya Bliss Basophils/100 WBC (Bld) 0.7 % Normal 0.2-2.0 [facility] Comment on above: Performed By: #### C BC #### [facility] [address] [place] [address] Dr. Mireya Bliss EO # 0.1 103/ul Normal 0.0-0.7 [facility] Comment on above: Performed By: #### C BC #### [facility] [address] [place] [address] Dr. Mireya Bliss Eosinophils/100 WBC (Bld) 0.7 % Critically low 0.9-7.0 [facility] Comment on above: Performed By: #### C BC #### [facility] [address] [place] [address] Dr. Mireya Bliss Erythrocyte distribution width (RBC) [Ratio] 13.4 % Normal 11.0-15.0 [facility] Comment on above: Performed By: #### C BC #### [facility] [address] [place] [address] Dr. Mireya Bliss Hematocrit (Bld) [Volume fraction] 39.5 % Critically low 42.0-54.0 [facility] Comment on above: Performed By: #### C BC #### [facility] [address] [place] [address] Dr. Mireya Bliss Hemoglobin (Bld) [Mass/Vol] 13.7 g/dL Critically low 14.0-18.0 [facility] Comment on above: Performed By: #### C BC #### [facility] [address] [place] [address] Dr. Mireya Bliss IG # 0.04 10e3/ul Critically high 0.00-0.03 [facility] Comment on above: Performed By: #### C BC #### [facility] [address] [place] [address] Dr. Mireya Bliss IG % 0.3 % Normal 0.0-0.5 [facility] Comment on above: Performed By: #### C BC #### [facility] [address] [place] [address] Dr. Mireya Bliss LYMPH # 2.8 103/ul Normal 1.2-3.8 [facility] Comment on above: Performed By: #### C BC #### [facility] [address] [place] [address] Dr. Mireya Bliss Lymphocytes/100 WBC (Bld) 23.6 % Normal 20.5-60.0 [facility] Comment on above: Performed By: #### C BC #### [facility] [address] [place] [address] Dr. Mireya Bliss MANUAL DIFF REQ NO Normal [facility] Comment on above: Performed By: #### C BC #### [facility] [address] [place] [address] Dr. Mireya Bliss MCH (RBC) [Entitic mass] 30.2 pg Normal 25.9-34.0 [facility] Comment on above: Performed By: #### C BC #### [facility] [address] [place] [address] Dr. Mireya Bliss MCHC (RBC) [Mass/Vol] 34.7 g/dL Normal 29.9-35.2 [facility] Comment on above: Performed By: #### C BC #### [facility] [address] [place] [address] Dr. Mireya Bliss MCV (RBC) [Entitic vol] 87.2 fL Normal 80.0-94.0 [facility] Comment on above: Performed By: #### C BC #### [facility] [address] [place] [address] Dr. Mireya Bliss MONO # 0.9 103/ul Critically high 0.3-0.8 [facility] Comment on above: Performed By: #### C BC #### [facility] [address] [place] [address] Dr. Mireya Bliss Monocytes/100 WBC (Bld) 7.2 % Normal 1.7-12.0 [facility] Comment on above: Performed By: #### C BC #### [facility] [address] [place] [address] Dr. Mireya Bliss NEUT # 7.9 103/ul Critically high 1.4-6.5 [facility] Comment on above: Performed By: #### C BC #### [facility] [address] [address] [address] Mireya Bliss Neutrophils/100 WBC (Bld) 67.5 % Normal 43.0-75.0 [facility] Comment on above: Performed By: #### C BC #### [facility] [address] [place] [address] [address] Mireya Bliss Platelet mean volume (Bld) [Entitic vol] 8.5 fL Critically low 9.5-13.5 [facility] Comment on above: Performed By: #### C BC #### [facility] [address] [address] [address] Mireya Bliss PLT 278 103/ul Normal 150-450 [facility] Comment on above: Performed By: #### C BC #### [facility] [address] [address] [address] Mireya Bliss RBC 4.53 106/ul Critically low 4.70-6.10 [facility] Comment on above: Performed By: #### C BC #### [facility] [address] [address] [address] Mireya Bliss WBC 11.8 103/ul Critically high 4.0-11.0 [facility] Comment on above: Performed By: #### C BC #### [facility] [address] [address] [address] Mireya Bliss PROF CHEM 8 (BAS METB)on Anion gap [Moles/Vol] 12.1 mmol/L Normal [facility] Comment on above: Performed By: #### B MP #### [facility] [address] [address] [address] Mireya Bliss Calcium [Mass/Vol] 8.9 mg/dL Normal 8.5-10.1 [facility] Comment on above: Performed By: #### B MP #### [facility] [address] [place] [address] [address] Mireya Bliss Chloride [Moles/Vol] 109 mmol/L Critically high 98-107 [facility] Comment on above: Performed By: #### B MP #### [facility] [address] [address] [address] Mireya Bliss CO2 [Moles/Vol] 26.5 mmol/L Normal 21.0-32.0 [facility] Comment on above: Performed By: #### B MP #### [facility] [address] [address] [address] Mireya Bliss Creatinine [Mass/Vol] 0.75 mg/dL Normal 0.70-1.30 [facility] Comment on above: Performed By: #### B MP #### [facility] [address] [address] [address] Mireya Bliss EGFR-AF CYMRO >60 Normal >=60 [facility] Comment on above: Performed By: #### B MP #### [facility] [address] [address] [address] Mireya Bliss EGFR-NON AF CYMRO >60 Normal >=60 [facility] Comment on above: Performed By: #### B MP #### [facility] [address] [address] [address] Mireya Bliss Glucose [Mass/Vol] 105 mg/dL Normal 74-106 [facility] Comment on above: Performed By: #### B MP #### [facility] [address] [place] [address] [address] Mireya Bliss Potassium [Moles/Vol] 3.6 mmol/L Normal 3.5-5.1 [facility] Comment on above: Performed By: #### B MP #### [facility] [address] [address] [address] Mireya Bliss Sodium [Moles/Vol] 144 mmol/L Normal 136-145 [facility] Comment on above: Performed By: #### B MP #### [facility] [address] [address] [address] Mireya Bliss Urea nitrogen [Mass/Vol] 10.0 mg/dL Normal 7.0-18.0 [facility] Comment on above: Performed By: #### B MP #### [facility] [address] [place] [address] Dr. Mireya Bliss Urea nitrogen/Creatinine [Mass ratio] 13.3 mg/mg Normal [facility] Comment on above: Performed By: #### B MP #### [facility] [address] [place] [address] Dr. Mireya Bliss PROTIMEon 12-04-2022 INR Coag (PPP) [Relative time] 0.96 {INR} Normal [facility] Comment on above: Performed By: #### P TT, PT #### [facility] [address] [place] [address] Dr. Mireya Bliss INR GUIDELINES SEE BELOW Normal [facility] Comment on above: Result Comment: NINFA RED INR: 2.0 - 3.0 CONDITIONS NOT LISTED BELOW 2.5 - 3.5 FOR PROSTHETIC HEART VALVE REPLACEMENT 2.5 - 3.5 RECURRENT THROMBOSIS Performed By: #### P TT, PT #### [facility] [address] [place] [address] Dr. Mireya Bliss PT Coag (PPP) [Time] 10.2 s Normal 9.0-11.6 [facility] Comment on above: Performed By: #### P TT, PT #### [facility] [address] [place] [address] Dr. Mireya Bliss PTTon 12-04-2022 aPTT Coag (Bld) [Time] 29.3 s Normal 22.3-36.2 [facility] Comment on above: Performed By: #### P TT, PT #### [facility] [address] [place] [address] Dr. Mireya Bliss XR LSPINE 2_3 VIEWSon 2021 XR LSPINE 2_3 VIEWS EXAMINATION: XR LSPINE 2_3 VIEWS HISTORY: Low back pain ; acute right lumbar spine pain; no known injury COMPARISON: No relevant comparison available. FINDINGS: BONES: No significant spondylosis, scoliosis, fracture, or visible bony lesion. DISC SPACES: L5-S1 marked disc space narrowing; mild at L4-L5. PARASPINOUS: Negative. No paraspinous abnormality is seen. OTHER: Negative. IMPRESSION: 1. No acute bone abnormality. 2. L5-S1 marked degenerative disc disease. Electronically authenticated by: [place] Date: 2022-06-10 15:19 Normal [facility] GROUP A STREP CULTUREon 01-01 S. pyogenes Ag Ql (Unsp spec) Culture Observations: NEGATIVE FOR GROUP A STREPTOCOCCUS. Normal [facility] Comment on above: Performed By: #### S SCRN, GRASTCX #### [facility] [address] [address] [address] Mireya Bliss MONOon 01-19-2022 Monocytes (Bld) [#/Vol] Negative Normal NEGATIVE T [facility] Comment on above: Performed By: #### M CARRIE #### [facility] [address] [address] [address] Mireya Bliss STREPT SCREENon 01-19-2022 STREP SCREEN A Negative Normal NEGATIVE [facility] Comment on above: Performed By: #### S SCRN, GRASTCX #### [facility] [address] [address] [address] Mireya Bliss Basic Metabolic Panelon 12-31 Calcium [Mass/Vol] 8.7 mg/dL Normal 8.2-10.2 [facility] Comment on above: Order Comment: Reaso n for Exam Blood tests for routine general physical examination Reason for Exam Family history of cardiovascular disease Performed By: #### C BC, BMP, HEPATIC, LIPID #### [facility] [address] [place] [id number] [place] Chloride [Moles/Vol] 106 mmol/L Normal 95-114 [facility] Comment on above: Order Comment: Reaso n for Exam Blood tests for routine general physical examination Reason for Exam Family history of cardiovascular disease Performed By: #### C BC, BMP, HEPATIC, LIPID #### [facility] [address] [place] [address] [place] CO2 [Moles/Vol] 24.3 mmol/L Normal 22.0-30.0 [facility] Comment on above: Order Comment: Reaso n for Exam Blood tests for routine general physical examination Reason for Exam Family history of cardiovascular disease Performed By: #### C BC, BMP, HEPATIC, LIPID #### [facility] [address] Creatinine [Mass/Vol] 0.88 mg/dL Normal 0.64-1.27 [facility] Comment on above: Order Comment: Reaso n for Exam Blood tests for routine general physical examination Reason for Exam Family history of cardiovascular disease Performed By: #### C BC, BMP, HEPATIC, LIPID #### [facility] [address] Estimated GFR ( Maryuri > 60 [facility] Comment on above: Order Comment: Reaso n for Exam Blood tests for routine general physical examination Reason for Exam Family history of cardiovascular disease Result Comment: GFR estimated reference range: According to KDOQI guidelines, <60 ml/min/1.73m2 is sufficient to diagnose a patient with chronic kidney disease. Performed By: #### C BC, BMP, HEPATIC, LIPID #### [facility] [address] Estimated GFR (Non- Am > 60 [facility] Comment on above: Order Comment: Reaso n for Exam Blood tests for routine general physical examination Reason for Exam Family history of cardiovascular disease Performed By: #### C BC, BMP, HEPATIC, LIPID #### [facility] [address] Glucose [Mass/Vol] 102 mg/dL High 70-100 [facility] Comment on above: Order Comment: Reaso n for Exam Blood tests for routine general physical examination Reason for Exam Family history of cardiovascular disease Result Comment: [place] Glucose Reference Range is dependent on time and content of last meal. Glucose of more than 200 mg/dL in a nonstressed, ambulatory subject supports the diagnosis of Diabetes Mellitus. ADA recommended reference range Performed By: #### C BC, BMP, HEPATIC, LIPID #### [facility] [address] Potassium [Moles/Vol] 3.8 mmol/L Normal 3.5-5.1 [facility] Comment on above: Order Comment: Reaso n for Exam Blood tests for routine general physical examination Reason for Exam Family history of cardiovascular disease Performed By: #### C BC, BMP, HEPATIC, LIPID #### [facility] [address] Sodium [Moles/Vol] 137 mmol/L Normal 136-146 [facility] Comment on above: Order Comment: Reaso n for Exam Blood tests for routine general physical examination Reason for Exam Family history of cardiovascular disease Performed By: #### C BC, BMP, HEPATIC, LIPID #### [facility] [address] Urea nitrogen [Mass/Vol] 9 mg/dL Normal 9-23 [facility] Comment on above: Order Comment: Reaso n for Exam Blood tests for routine general physical examination Reason for Exam Family history of cardiovascular disease Performed By: #### C BC, BMP, HEPATIC, LIPID #### [address] Complete Blood Count Auto Di ffon 01-12-2022 Basophils (Bld) [#/Vol] 0.1 10*3/uL Normal 0.0-0.2 [facility] Comment on above: Order Comment: Reaso n for Exam Blood tests for routine general physical examination Result Comment: PERF ORMED BY: [place] [address] PATHOLOGIST [employer] MOISES SHEPHERD M.D. Performed By: #### C BC, BMP, HEPATIC, LIPID #### [address] Basophils/100 WBC (Bld) 1.1 % Normal . [facility] Comment on above: Order Comment: Reaso n for Exam Blood tests for routine general physical examination Performed By: #### C BC, BMP, HEPATIC, LIPID #### [facility] [address] [place] [address] [place] Eosinophils (Bld) [#/Vol] 0.3 10*3/uL Normal 0.0-0.45 [facility] Comment on above: Order Comment: Reaso n for Exam Blood tests for routine general physical examination Performed By: #### C BC, BMP, HEPATIC, LIPID #### [place] [address] [place] Eosinophils/100 WBC (Bld) 2.6 % Normal . [facility] Comment on above: Order Comment: Reaso n for Exam Blood tests for routine general physical examination Performed By: #### C BC, BMP, HEPATIC, LIPID #### [facility] [address] Erythrocyte distribution width (RBC) [Ratio] 13.6 % Normal 12.0-14.8 [facility] Comment on above: Order Comment: Reaso n for Exam Blood tests for routine general physical examination Performed By: #### C BC, BMP, HEPATIC, LIPID #### [facility] [address] Hematocrit (Bld) [Volume fraction] 45.2 % Normal 38.8-50.0 [facility] Comment on above: Order Comment: Reaso n for Exam Blood tests for routine general physical examination Performed By: #### C BC, BMP, HEPATIC, LIPID #### [facility] [address] [place] [address] [place] Hemoglobin (Bld) [Mass/Vol] 15.1 g/dL Normal 13.0-17.0 [facility] Comment on above: Order Comment: Reaso n for Exam Blood tests for routine general physical examination Performed By: #### C BC, BMP, HEPATIC, LIPID #### [place] [address] [place] Lymphocytes (Bld) [#/Vol] 2.9 10*3/uL Normal 1.00-4.8 [facility] Comment on above: Order Comment: Reaso n for Exam Blood tests for routine general physical examination Performed By: #### C BC, BMP, HEPATIC, LIPID #### [facility] [address] [place] [address] [place] Lymphocytes/100 WBC (Bld) 28.8 % Normal . [facility] Comment on above: Order Comment: Reaso n for Exam Blood tests for routine general physical examination Performed By: #### C BC, BMP, HEPATIC, LIPID #### [facility] [address] [place] [address] [place] MCH (RBC) [Entitic mass] 30.3 pg Normal 27.5-35.2 [facility] Comment on above: Order Comment: Reaso n for Exam Blood tests for routine general physical examination Performed By: #### C BC, BMP, HEPATIC, LIPID #### [facility] [address] MCV (RBC) [Entitic vol] 90.7 fL Normal 83.5-[address] [facility] Comment on above: Order Comment: Reaso n for Exam Blood tests for routine general physical examination Performed By: #### C BC, BMP, HEPATIC, LIPID #### [facility] [address] Mean Corpuscular HGB Conc 33.4 g/dL Normal 32.5-35.6 [facility] Comment on above: Order Comment: Reaso n for Exam Blood tests for routine general physical examination Performed By: #### C BC, BMP, HEPATIC, LIPID #### [facility] [address] [place] [address] [place] Monocytes (Bld) [#/Vol] 1.0 10*3/uL High 0.0-0.8 [facility] Comment on above: Order Comment: Reaso n for Exam Blood tests for routine general physical examination Performed By: #### C BC, BMP, HEPATIC, LIPID #### [facility] [address] [place] [address] [place] Monocytes/100 WBC (Bld) 9.7 % Normal . F [facility] Comment on above: Order Comment: Reaso n for Exam Blood tests for routine general physical examination Performed By: #### C BC, BMP, HEPATIC, LIPID #### [facility] [address] [place] [address] [place] Neutrophils (Bld) [#/Vol] 5.8 10*3/uL Normal 1.8-7.7 [facility] Comment on above: Order Comment: Reaso n for Exam Blood tests for routine general physical examination Performed By: #### C BC, BMP, HEPATIC, LIPID #### [facility] [address] [place] [address] [place] Neutrophils/100 WBC (Bld) 57.8 % Normal . [facility] Comment on above: Order Comment: Reaso n for Exam Blood tests for routine general physical examination Performed By: #### C BC, BMP, HEPATIC, LIPID #### [facility] [address] Nucleated RBC/100 WBC (Bld) [Ratio] 0.0 % Normal 0-0.5 [facility] Comment on above: Order Comment: Reaso n for Exam Blood tests for routine general physical examination Performed By: #### C BC, BMP, HEPATIC, LIPID #### [facility] [address] Platelet mean volume (Bld) [Entitic vol] 7.4 fL Normal 6.6-10.1 [facility] Comment on above: Order Comment: Reaso n for Exam Blood tests for routine general physical examination Performed By: #### C BC, BMP, HEPATIC, LIPID #### [facility] [address] Platelets (Bld) [#/Vol] 302 10*3/uL Normal 150-450 [facility] Comment on above: Order Comment: Reaso n for Exam Blood tests for routine general physical examination Performed By: #### C BC, BMP, HEPATIC, LIPID #### [facility] [address] RBC (Bld) [#/Vol] 4.98 10*6/uL Normal 3.90-5.60 [facility] Comment on above: Order Comment: Reaso n for Exam Blood tests for routine general physical examination Performed By: #### C BC, BMP, HEPATIC, LIPID #### [facility] [address] WBC (Bld) [#/Vol] 10.0 10*3/uL Normal 4.5-11.0 [facility] Comment on above: Order Comment: Reaso n for Exam Blood tests for routine general physical examination Performed By: #### C BC, BMP, HEPATIC, LIPID #### [facility] [address] Hepatic Panelon 01-12-2022 Albumin [Mass/Vol] 3.8 g/dL Normal 3.2-5.5 [facility] Comment on above: Order Comment: Reaso n for Exam Blood tests for routine general physical examination Reason for Exam Family history of cardiovascular disease Performed By: #### C BC, BMP, HEPATIC, LIPID #### [facility] [address] [place] [id number] [place] Albumin/Globulin [Mass ratio] 1.3 {ratio} Normal [facility] Comment on above: Order Comment: Reaso n for Exam Blood tests for routine general physical examination Reason for Exam Family history of cardiovascular disease Performed By: #### C BC, BMP, HEPATIC, LIPID #### [facility] [address] [place] [address] [place] ALP [Catalytic activity/Vol] 57 U/L Normal 32-92 [facility] Comment on above: Order Comment: Reaso n for Exam Blood tests for routine general physical examination Reason for Exam Family history of cardiovascular disease Performed By: #### C BC, BMP, HEPATIC, LIPID #### [facility] [address] [place] [address] [place] ALT [Catalytic activity/Vol] 18 U/L Normal 10-60 [facility] Comment on above: Order Comment: Reaso n for Exam Blood tests for routine general physical examination Reason for Exam Family history of cardiovascular disease Performed By: #### C BC, BMP, HEPATIC, LIPID #### [facility] [address] [place] [address] [place] AST [Catalytic activity/Vol] 19 U/L Normal 10-42 [facility] Comment on above: Order Comment: Reaso n for Exam Blood tests for routine general physical examination Reason for Exam Family history of cardiovascular disease Performed By: #### C BC, BMP, HEPATIC, LIPID #### [facility] [address] [place] [address] [place] Bilirubin [Mass/Vol] 0.8 mg/dL Normal 0.3-1.2 [facility] Comment on above: Order Comment: Reaso n for Exam Blood tests for routine general physical examination Reason for Exam Family history of cardiovascular disease Performed By: #### C BC, BMP, HEPATIC, LIPID #### [facility] [address] [place] [address] [place] Bilirubin,Indirect 0.7 mg/dL Normal [facility] Comment on above: Order Comment: Reaso n for Exam Blood tests for routine general physical examination Reason for Exam Family history of cardiovascular disease Performed By: #### C BC, BMP, HEPATIC, LIPID #### [facility] [address] Bilirubin.indirect [Mass/Vol] 0.1 mg/dL Normal 0.0-0.4 [facility] Comment on above: Order Comment: Reaso n for Exam Blood tests for routine general physical examination Reason for Exam Family history of cardiovascular disease Performed By: #### C BC, BMP, HEPATIC, LIPID #### [facility] [address] Globulin (S) [Mass/Vol] 3.0 g/dL Normal [facility] Comment on above: Order Comment: Reaso n for Exam Blood tests for routine general physical examination Reason for Exam Family history of cardiovascular disease Performed By: #### C BC, BMP, HEPATIC, LIPID #### [facility] [address] Protein [Mass/Vol] 6.8 g/dL Normal 6.1-7.9 [facility] Comment on above: Order Comment: Reaso n for Exam Blood tests for routine general physical examination Reason for Exam Family history of cardiovascular disease Performed By: #### C BC, BMP, HEPATIC, LIPID #### [facility] [address] Lipid Panelon 01-12-2022 Cholesterol [Mass/Vol] 181 mg/dL Normal 140-200 [facility] Comment on above: Order Comment: Reaso n for Exam Blood tests for routine general physical examination Reason for Exam Family history of cardiovascular disease Result Comment: Chol less than 200 mg/dl low risk Chol 201-239 mg/dl borderline risk Chol 240 mg/dl and greater high risk Performed By: #### C BC, BMP, HEPATIC, LIPID #### [facility] [address] [place] [address] Cholesterol in HDL [Mass/Vol] 35 mg/dL Normal 29-71 [facility] Comment on above: Order Comment: Reaso n for Exam Blood tests for routine general physical examination Reason for Exam Family history of cardiovascular disease Result Comment: HDL CHOL ATP-III CLASSIFICATION Cardiovascular Risk HDL > or equal to 60 mg/dL LOW HDL < 40 mg/dL HIGH Performed By: #### C BC, BMP, HEPATIC, LIPID #### [facility] [address] Cholesterol.total/Choles terol in HDL [Mass ratio] 5.2 {ratio} Normal <5.0 [facility] Comment on above: Order Comment: Reaso n for Exam Blood tests for routine general physical examination Reason for Exam Family history of cardiovascular disease Result Comment: PERF ORMED BY: [facility] [address] [place] [address] PATHOLOGIST [employer]NAG[employer] INTERN MOISES SHEPHERD M.D. Performed By: #### C BC, BMP, HEPATIC, LIPID #### [facility] [address] LDL Cholesterol,Calculated 125 mg/dL High 0-100 [facility] Comment on above: Order Comment: Reaso n for Exam Blood tests for routine general physical examination Reason for Exam Family history of cardiovascular disease Result Comment: LDL ATP III CLASSIFICATION LDL less than 100 mg/dL Optimal LDL 100-129 mg/dL Near or above optimal LDL 130-159 mg/dL Borderline high LDL 160-189 mg/dL High LDL greater than 189 mg/dL Very high Performed By: #### C BC, BMP, HEPATIC,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 Evaluation note Note Date & Type Note Facility Evaluation note No Information [facility] Other Evaluation note Note Date & Type Note Facility Evaluation note No assessment information availa ble [facility] Work Phone: History general Narrative - Reported Note Date & Type Note Facility History general Narrative - Reported Type Medical History Acid peptic [id number] Medical History Left epididynocele-2005 Medical History Acne Vulgaris-2006 Medical History Panic disorder-2006 Medical History Osteoarthritis [id number] Medical History GERD, hiatal hernia-2017 Medical History Cluster headaches Medical History Adjustment disorder with mixed anxiety and depressed mood Medical History Seasonal allergic rh initis due to pollen Surgical History Myringotomy as a child Surgical History T&A age 7 Surgical History Right shoulder scope to shave bone spur- [address] Heller ( [place]), GERD 2017 Hospitalization History No know Hospitalization history [employer] Other History general Narrative - Reported Note Date & Type Note Facility History general Narrative - Reported Type Medical History Acid peptic [id number] Medical History Left epididynocele-2006 Medical History Acne Vulgaris-2006 Medical History Panic disorder-2006 Medical History Osteoarthritis [id number] Medical History GERD, hiatal hernia-2017 Medical History Adjustment disorder with mixed anxiety and depressed mood Medical History Seasonal allergic rh initis due to pollen Surgical History Myringotomy as a child Surgical History T&A age 7 Surgical History Right shoulder scope to shave bone spur- [address] Heller ( [place]), GERD 2017 Hospitalization History No know Hospitalization history [employer] Other History general Narrative - Reported Note Date & Type Note Facility History general Narrative - Reported Type Medical History Acid peptic [id number] Medical History Left epididynocele-2006 Medical History Acne Vulgaris-2006 Medical History Panic disorder-2006 Medical History Osteoarthritis [id number] Medical History GERD, hiatal hernia-2017 Medical History Adjustment disorder with mixed anxiety and depressed mood Medical History Seasonal allergic rh initis due to pollen Surgical History Myringotomy as a child Surgical History T&A age 7 Surgical History Right shoulder scope to shave bone spur- [address] Heller ( [place]), GERD 2017 Hospitalization History No Hospitalizati on history information [employer] Other Summary Purpose Family History No Family History Records FoundNo Family History Records FoundNo Family History Records Found Advance Directives Advance Directive Response Recorded Date/ Time Advance Directives No February 14 8 8:31am Reason for Referral Reason CARDIAC SCREENING Diagnosis 1 Family history of ca rdiac disorder in father (Z82.49) Referral Organization [facility] Family Bessy Bearden Referring Provider First Name Kevin Referring Provider Last Name Oberer Referring Provider Specialty Family Prac nivia Referred Organization [facility] enter Referred Provider Abelardo Baker Referred Address [address],[place],[address] Referred Provider Specialty Cardiac Surg ary Referral Priority Routine General Notes Milagros Fernández Harris 2021 11:05:31 AM >REFERRAL FAXED Reason cardiac work up fami ly HX Diagnosis 1 Family history of ca rdiovascular disease (Z82.49) Referral Organization [facility] Family Medicin e [address] Referring Provider First Name Kevin Referring Provider Last Name Oberer Referring Provider Specialty Family Prac nivia Referred Organization [facility] Referred Address [address],[place],[address] Referred Provider Specialty Cardiology Referral Priority Routine General Notes Milagros Fernández Harris 2021 02:40:56 PM >REFERRAL SENT Chief Complaint and Reason for Visit Chief Complaint M54.2 Z00.00 Additional Source Comments (unrecognized sect ion and content) No Status Records FoundNo Status Records FoundNo Status Records Found INFORMATION SOURCE (unrecogn ized section and content) DATE CREATED AUTHOR 01/13/2021 [facility] DATE CREATED AUTHOR AUTHOR'S ORGANIZ ATION [facility] DATE CREATED AUTHOR AUTHOR'S ORGANIZ ATION 12/28/2022 [facility] REASON FOR VISIT (unrecogniz ed section and content) PFT ordersMULTIPLE ISSUES, w ants FMLA for his back [place], wants checkup for heart and lungs has family HX [place], has wort on lt index finger has tried many OTC treatment [place], pharmacy [facility], Chiropractor, Off work6 mth f/u/hip is out, flu declines [place], is having cluster headaches that started about 2 weeks ago usually treats with ice but did not get relief this time [facility], rt hip going out was seen 3 times this week [facility], did have Xrays at [facility] with arthritis LB, lots of OA L5-S1, mild L4-L5, pharmacy [facility] [place], 11 pound weight gain, Mood, OA, [facility] cardiac screening, Smoking, FEV1 over FVC 74%6 month Follow up, pharmacy: [facility] - jld, flu shot: declines - jld, c/o soreness to the left forearm, states he had bruising two weeks ago, and that he was heavy lifting at work - jld, c/o severe headaches that come out of nowhere, causes hand and toes to go numb, more frequent lately, with three happening this week. - jld, When headaches come on, he feels as though he's going to pass out and vision goes bad. - jld, The above symptoms also correlate with right shoulder pain that radiates to the neck, no specific activities exacerbate - jld, Pt went to [facility] ER two weeks ago for the forearm, no diagnosis given - jld, 2018 cervical spine x-rays mild to moderate OA, GI, FMLA, lumbar painSOCIAL NEEDSlabs/neck xray results6 month Follow up, pharmacy: [facility] - jld, flu shot: declines - jld, colonoscopy: none - jld, COVID: none - jld, Pt states he has FMLA papers that need filled out that he'll drop monday. No other issues at this time. lfr, Temporary 4-month layoff, FMLA work requirements 6-month visit here, November headaches, cervicogenic, cervical spine x-ray OA, Migraine medication Care Teams (unrecognized sec tion and content) Team Status: Active Member Role Status Dates Kevin Messina DO Primary Care Provider Active Team Status: Inactive Member Role Status Dates Kevin Messina DO Primary Care Provider, Attending Prov ider Active Goals (unrecognized section and content) Goals may be documented in a n alternate section FOR RECORDS PERTAINING TO PATIENTS WHO ARE OR HAVE BEEN ENROLLED IN A CHEMICAL DEPENDENCY/SUBSTANCEABUSE PROGRAM, SOME INFORMATION MAY BE OMITTED. This clinical summary was aggregated from multiple sources. Caution should be exercised in using it in the provision of clinical care. This summary normalizes information from multiple sources, and as a consequence, information in this document may materially change the coding, format and clinical context of patient data. In addition, data may be omitted in some cases. CLINICAL DECISIONS SHOULD BE BASED ON THE PRIMARY CLINICAL RECORDS. [email or web address] provides no warranty or guarantee of the accuracy or completeness of information in this document.
== END 2024-10-29 09:47 | disposition home or self-care (01) ==
LOC: US 09:46
PROVIDERS: PCP Nurse Practitioner Family; Visit Provider Nurse Practitioner Family
DX: R10.12 Left upper quadrant pain (principal); M25.511 Pain in right shoulder
CPT/HCPCS: 73030; 76700

== ENCOUNTER 2024-11-11 06:00 | Emergency (ER) | payer OTHER, SELFPAY ==
[2024-11-11 06:04] VITALS: BP 123/78; PULSE 72; TEMP 36.6; O2SAT 98; BMI 26.6
--- OUTSIDE RECORDS SUMMARY | 2024-11-11 06:18 | XMS_ITS | CCD ---
Author Organization [facility] Care Team Providers Care Flow Match Sofa Cutter Name Role Phone Kevin Messina Unavailable DR [...] Care Provider DO Kevin Messina Attending Provider Medications Current Medications Medication Drug Class(es) Dates [...] Range Facility A1C with Estimated Average G [facility] [place]26[place] Glucose [Mass/Vol] 114 mg/dL Normal [facility] Comment on above: Order Comment: Reaso n for Exam Adult general medical examination Result Comment: PERF ORMED BY: [facility] [address] [place] [address] PATHOLOGIST CLAIM PROCESSOR MOISES SHEPHERD M.D. Performed By: #### A 1C [facility] eA ####[place] [id number] [place] [id number] [facility] HbA1c (Bld) [Mass fraction] 5.6 % Normal 4.3-5.6 [facility] Comment on above: Order Comment: Reaso n for Exam Adult general medical examination Result Comment: Incr eased risk for diabetes: 5.7 - 6.4 diabetes: >6.4 glycemic control for adults with diabetes: <7.0 Performed By: #### A 1C [facility] eA ####[place] [address] [place] [id number] [facility] Alanine aminotransferase [En zymatic activity/volume] in Serum or PlasmaOrdered By: Kevin Messina on 12-26-2022 ALT [Catalytic activity/Vol] 36 U/L 7- [facility] Albumin [Mass/volume] in Ser um or Plasma by Bromocresol green (BCG) dye binding methoOrdered By: Kevin Messina on 12-26-2022 Albumin BCG dye [Mass/Vol] 4.3 g/dL 3.5-5.7 [facility] Alkaline phosphatase [Enzyma tic activity/volume] in Serum or PlasmaOrdered By: Kevin Messina on 12-26-2022 ALP [Catalytic activity/Vol] 66 U/L 34-104 [facility] Aspartate aminotransferase [ Enzymatic activity/volume] in Serum or PlasmaOrdered By: Kevin Messina on 12-26-2022 AST [Catalytic activity/Vol] 23 U/L 13-39 [facility] Basic Metabolic Panelon 12-01 Anion gap [Moles/Vol] 9.0 mmol/L Normal 6.0-15.0 [facility] Comment on above: Order Comment: NOT F ASTING Reason for Exam Adult general medical examination Performed By: #### B MP, HEPATIC, LIPID #### [facility] [address] [place] [id number] [facility] Calcium [Mass/Vol] 8.9 mg/dL Normal 8.6-10.3 [facility] Comment on above: Order Comment: NOT F ASTING Reason for Exam Adult general medical examination Performed By: #### B MP, HEPATIC, LIPID #### [facility] [address] [place] [address] [place] Chloride [Moles/Vol] 106 mmol/L Normal 98-107 [facility] Comment on above: Order Comment: NOT F ASTING Reason for Exam Adult general medical examination Performed By: #### B MP, HEPATIC, LIPID #### [facility] [address] [place] [address] [place] CO2 [Moles/Vol] 27.9 mmol/L Normal 21.0-31.0 [facility] Comment on above: Order Comment: NOT F ASTING Reason for Exam Adult general medical examination Performed By: #### B MP, HEPATIC, LIPID #### [facility] [address] [place] [address] [place] Creatinine [Mass/Vol] 0.82 mg/dL Normal 0.70-1.30 [facility] Comment on above: Order Comment: NOT F ASTING Reason for Exam Adult general medical examination Performed By: #### B MP, HEPATIC, LIPID #### [facility] [address] [place] [address] [place] GFR/1.73 sq M.predicted MDRD (S/P/Bld) [Vol rate/Area] mL/min/{1.73_m2} Normal [facility] Comment on above: Order Comment: NOT F ASTING Reason for Exam Adult general medical examination Performed By: #### B MP, HEPATIC, LIPID #### [facility] [address] Glucose [Mass/Vol] 96 mg/dL Normal 70-100 [facility] Comment on above: Order Comment: NOT F ASTING Reason for Exam Adult general medical examination Result Comment: [facility] Glucose Reference Range is dependent on time and content of last meal. Glucose of more than 200 mg/dL in a nonstressed, ambulatory subject supports the diagnosis of Diabetes Mellitus. ADA recommended reference range Performed By: #### B MP, HEPATIC, LIPID #### [facility] [address] [place] [address] [place] Potassium [Moles/Vol] 3.9 mmol/L Normal 3.5-5.1 [facility] Comment on above: Order Comment: NOT F ASTING Reason for Exam Adult general medical examination Performed By: #### B MP, HEPATIC, LIPID #### [facility] [address] [place] [id number] [place] Sodium [Moles/Vol] 139 mmol/L Normal 136-145 [facility] Comment on above: Order Comment: NOT F ASTING Reason for Exam Adult general medical examination Performed By: #### B MP, HEPATIC, LIPID #### [facility] [address] [place] [id number] [place] Urea nitrogen [Mass/Vol] 11 mg/dL Normal 7-25 [facility] Comment on above: Order Comment: NOT F ASTING Reason for Exam Adult general medical examination Performed By: #### B MP, HEPATIC, LIPID #### [facility] [address] [place] [id number] [facility] Basophils Auto (Bld) [#/Vol] Ordered By: Kevin Messina on 12-26-2022 Basophils (Bld) [#/Vol] 0.1 10*3/uL 0.0-0.2 [facility] Basophils/100 WBC Auto (Bld) Ordered By: Kevin Messina on 12-26-2022 Basophils/100 WBC (Bld) 0.7 % . [facility] Bilirubin.direct [Mass/volum e] in Serum or PlasmaOrdered By: Kevin Messina on 12-26-2022 Bilirubin.direct [Mass/Vol] 0.10 mg/dL 0.03-0.18 [facility] Bilirubin.total [Mass/volume ] in Serum or PlasmaOrdered By: Kevin Messina on 12-26-2022 Bilirubin [Mass/Vol] 0.3 mg/dL 0.3-1.0 [facility] Calcium [Mass/volume] in Ser um or PlasmaOrdered By: Kevin Messina on 12-26-2022 Calcium [Mass/Vol] 8.9 mg/dL 8.6-10.3 [facility] Carbon dioxide, total [Moles /volume] in Serum or PlasmaOrdered By: Kevin Messina on 12-26-2022 CO2 [Moles/Vol] 27.9 mmol/L 21.0-31.0 [facility] Chloride [Moles/volume] in S samuel or PlasmaOrdered By: Kevin Messina on 12-26-2022 Chloride [Moles/Vol] 106 mmol/L 98-107 [facility] Cholesterol [Mass/volume] in Serum or PlasmaOrdered By: Kevin Messina on 12-26-2022 Cholesterol [Mass/Vol] 217 mg/dL 140-200 [facility] Comment on above: Chol less than 200 m g/dl low riskChol 201-239 mg/dl borderline riskChol 240 mg/dl and greater high risk Cholesterol in LDL Calc [Mas s/Vol]Ordered By: Kevin Messina on 12-26-2022 Cholesterol in LDL [Mass/Vol] 145 mg/dL 0-100 [facility] Comment on above: LDL ATP III CLASSIFI CATIONLDL less than 100 mg/dL OptimalLDL 100-129 mg/dL Near or above optimalLDL 130-159 mg/dL Borderline highLDL 160-189 mg/dL HighLDL greater than 189 mg/dL Very high Cholesterol in VLDL Calc [Ma ss/Vol]Ordered By: Kevin Messina on 12-26-2022 Cholesterol in VLDL [Mass/Vol] 29 mg/dL [facility] Complete Blood Count Auto Di ffon 12-26-2022 Basophils (Bld) [#/Vol] 0.1 10*3/uL Normal 0.0-0.2 [facility] Comment on above: Order Comment: Reaso n for Exam Adult general medical examination Result Comment: PERF ORMED BY: [place] [address] PATHOLOGIST CLAIM PROCESSOR MOISES SHEPHERD M.D. Performed By: #### C BC #### [address] Basophils/100 WBC (Bld) 0.7 % Normal . F [facility] Comment on above: Order Comment: Reaso n for Exam Adult general medical examination Performed By: #### C BC #### [facility] [address] [place] [address] Eosinophils (Bld) [#/Vol] 0.4 10*3/uL Normal 0.0-0.45 [facility] Comment on above: Order Comment: Reaso n for Exam Adult general medical examination Performed By: #### C BC #### [facility] [address] [place] [address] Eosinophils/100 WBC (Bld) 3.2 % Normal . [facility] Comment on above: Order Comment: Reaso n for Exam Adult general medical examination Performed By: #### C BC #### [address] Erythrocyte distribution width (RBC) [Ratio] 14.2 % Normal 12.0-14.8 [facility] Comment on above: Order Comment: Reaso n for Exam Adult general medical examination Performed By: #### C BC #### [address] Hematocrit (Bld) [Volume fraction] 44.8 % Normal 38.8-50.0 [facility] Comment on above: Order Comment: Reaso n for Exam Adult general medical examination Performed By: #### C BC #### [address] Hemoglobin (Bld) [Mass/Vol] 14.9 g/dL Normal 13.0-17.0 [facility] Comment on above: Order Comment: Reaso n for Exam Adult general medical examination Performed By: #### C BC #### [address] Lymphocytes (Bld) [#/Vol] 3.1 10*3/uL Normal 1.00-4.8 [facility] Comment on above: Order Comment: Reaso n for Exam Adult general medical examination Performed By: #### C BC #### [address] Lymphocytes/100 WBC (Bld) 27.1 % Normal . [facility] Comment on above: Order Comment: Reaso n for Exam Adult general medical examination Performed By: #### C BC #### [address] MCH (RBC) [Entitic mass] 30.0 pg Normal 27.5-35.2 [facility] Comment on above: Order Comment: Reaso n for Exam Adult general medical examination Performed By: #### C BC #### [address] MCV (RBC) [Entitic vol] 90.2 fL Normal 83.5-101 F [facility] Comment on above: Order Comment: Reaso n for Exam Adult general medical examination Performed By: #### C BC #### [address] Mean Corpuscular HGB Conc 33.2 g/dL Normal 32.5-35.6 [facility] Comment on above: Order Comment: Reaso n for Exam Adult general medical examination Performed By: #### C BC #### [address] [place] [address] [place] Monocytes (Bld) [#/Vol] 1.0 10*3/uL High 0.0-0.8 [facility] Comment on above: Order Comment: Reaso n for Exam Adult general medical examination Performed By: #### C BC #### [facility] [address] [place] [address] Monocytes/100 WBC (Bld) 8.6 % Normal . [facility] Comment on above: Order Comment: Reaso n for Exam Adult general medical examination Performed By: #### C BC #### [facility] [address] [place] [address] Neutrophils (Bld) [#/Vol] 7.0 10*3/uL Normal 1.8-7.7 [facility] Comment on above: Order Comment: Reaso n for Exam Adult general medical examination Performed By: #### C BC #### [facility] [address] [place] [address] [place] Neutrophils/100 WBC (Bld) 60.4 % Normal . [facility] Comment on above: Order Comment: Reaso n for Exam Adult general medical examination Performed By: #### C BC #### [facility] [address] [place] [address] NRBC% 0.1 /100{WBC} Normal 0-0.5 [facility] Comment on above: Order Comment: Reaso n for Exam Adult general medical examination Performed By: #### C BC #### [facility] [address] [place] [address] [place] Platelet mean volume (Bld) [Entitic vol] 7.2 fL Normal 6.6-10.1 [facility] Comment on above: Order Comment: Reaso n for Exam Adult general medical examination Performed By: #### C BC #### [facility] [address] [place] [address] [place] Platelets (Bld) [#/Vol] 307 10*3/uL Normal 150-450 [facility] Comment on above: Order Comment: Reaso n for Exam Adult general medical examination Performed By: #### C BC #### [address] [place] [address] [place] RBC (Bld) [#/Vol] 4.97 10*6/uL Normal 3.90-5.60 [facility] Comment on above: Order Comment: Reaso n for Exam Adult general medical examination Performed By: #### C BC #### [facility] [address] WBC (Bld) [#/Vol] 11.5 10*3/uL High 4.1-10.5 [facility] Comment on above: Order Comment: Reaso n for Exam Adult general medical examination Performed By: #### C BC #### [facility] [address] Creatinine [Mass/volume] in Serum or PlasmaOrdered By: Kevin Messina on 12-26-2022 Creatinine [Mass/Vol] 0.82 mg/dL 0.70-1.30 [facility] Eosinophils Auto (Bld) [#/Vo l]Ordered By: Kevin Messina on 12-26-2022 Eosinophils (Bld) [#/Vol] 0.4 10*3/uL 0.0-0.45 [facility] Eosinophils/100 WBC Auto (Bl d)Ordered By: Kevin Messina on 12-26-2022 Eosinophils/100 WBC (Bld) 3.2 % . [facility] Erythrocyte distribution wid th Auto (RBC) [Ratio]Ordered By: Kevin Messina on 12-26-2022 Erythrocyte distribution width (RBC) [Ratio] 14.2 % 12.0-14.8 [facility] Globulin Calc (S) [Mass/Vol] Ordered By: Kevin Messina on 12-26-2022 Globulin (S) [Mass/Vol] 2.6 g/dL [facility] Glucose [Mass/volume] in Ser um or PlasmaOrdered By: Kevin Messina on 12-26-2022 Glucose [Mass/Vol] 96 mg/dL 70-100 [facility] Comment on above: ADA recommended refe rence rangeRandom Glucose Reference Range is dependent on time and content of last meal. Glucose of more than 200 mg/dL in a nonstressed, ambulatory subject supports the diagnosis of Diabetes Mellitus. Hematocrit Auto (Bld) [Volum e fraction]Ordered By: Kevin Messina on 12-26-2022 Hematocrit (Bld) [Volume fraction] 44.8 % 38.8-50.0 [facility] Hemoglobin [Mass/volume] in BloodOrdered By: Kevin Messina on 12-26-2022 Hemoglobin (Bld) [Mass/Vol] 14.9 g/dL 13.0-17.0 [facility] Hepatic Panelon 12-26-2022 Albumin [Mass/Vol] 4.3 g/dL Normal 3.5-5.7 [facility] Comment on above: Order Comment: NOT F ASTING Reason for Exam Adult general medical examination Performed By: #### B MP, HEPATIC, LIPID #### [facility] [address] Albumin/Globulin [Mass ratio] 1.7 {ratio} Normal [facility] Comment on above: Order Comment: NOT F ASTING Reason for Exam Adult general medical examination Performed By: #### B MP, HEPATIC, LIPID #### [facility] [address] [place] [address] [place] ALP [Catalytic activity/Vol] 66 U/L Normal 34-104 [facility] Comment on above: Order Comment: NOT F ASTING Reason for Exam Adult general medical examination Performed By: #### B MP, HEPATIC, LIPID #### [facility] [address] [place] [address] [place] ALT [Catalytic activity/Vol] 36 U/L Normal 7-52 [facility] Comment on above: Order Comment: NOT F ASTING Reason for Exam Adult general medical examination Performed By: #### B MP, HEPATIC, LIPID #### [facility] [address] [place] [address] [place] AST [Catalytic activity/Vol] 23 U/L Normal 13-39 [facility] Comment on above: Order Comment: NOT F ASTING Reason for Exam Adult general medical examination Performed By: #### B MP, HEPATIC, LIPID #### [facility] [address] [place] [address] [place] Bilirubin [Mass/Vol] 0.3 mg/dL Normal 0.3-1.0 [facility] Comment on above: Order Comment: NOT F ASTING Reason for Exam Adult general medical examination Performed By: #### B MP, HEPATIC, LIPID #### [facility] [address] Bilirubin,Indirect 0.2 mg/dL Normal [facility] Comment on above: Order Comment: NOT F ASTING Reason for Exam Adult general medical examination Performed By: #### B MP, HEPATIC, LIPID #### [facility] [address] Bilirubin.indirect [Mass/Vol] 0.10 mg/dL Normal 0.03-0.18 [facility] Comment on above: Order Comment: NOT F ASTING Reason for Exam Adult general medical examination Performed By: #### B MP, HEPATIC, LIPID #### [address] Globulin (S) [Mass/Vol] 2.6 g/dL Normal F [facility] Comment on above: Order Comment: NOT F ASTING Reason for Exam Adult general medical examination Performed By: #### B MP, HEPATIC, LIPID #### [address] Protein [Mass/Vol] 6.9 g/dL Normal 6.4-8.9 [facility] Comment on above: Order Comment: NOT F ASTING Reason for Exam Adult general medical examination Performed By: #### B MP, HEPATIC, LIPID #### [address] Laboratory - Chemistry and C hemistry - challengeOrdered By: Kevin Messina on 12-26-2022 GFR/1.73 sq M.predicted MDRD (S/P/Bld) [Vol rate/Area] mL/min/{1.73_m2} [facility] Leukocytes [#/volume] correc nina for nucleated erythrocytes in Blood by Automated counOrdered By: Kevin Messina on 12-26-2022 WBC corrected for nucl RBC Auto (Bld) [#/Vol] 11.5 10*3/uL 4.1-10.5 [facility] Lipid Panelon 12-26-2022 Cholesterol [Mass/Vol] 217 mg/dL High 140-200 [facility] Comment on above: Order Comment: NOT F ASTING Reason for Exam Adult general medical examination Result Comment: Chol less than 200 mg/dl low risk Chol 201-239 mg/dl borderline risk Chol 240 mg/dl and greater high risk Performed By: #### B MP, HEPATIC, LIPID #### [facility] [address] [place] [id number] [facility] Cholesterol in HDL [Mass/Vol] 43 mg/dL Normal 29-71 [facility] Comment on above: Order Comment: NOT F ASTING Reason for Exam Adult general medical examination Result Comment: HDL CHOL ATP-III CLASSIFICATION Cardiovascular Risk HDL > or equal to 60 mg/dL LOW HDL < 40 mg/dL HIGH Performed By: #### B MP, HEPATIC, LIPID #### [facility] [address] Cholesterol.total/Choles terol in HDL [Mass ratio] 5.0 {ratio} Normal <5.0 [facility] Comment on above: Order Comment: NOT F ASTING Reason for Exam Adult general medical examination Result Comment: PERF ORMED BY: [place] [address] PATHOLOGIST CLAIM PROCESSOR MOISES SHEPHERD M.D. Performed By: #### B MP, HEPATIC, LIPID #### [facility] [address] [place] [address] [facility] LDL Cholesterol,Calculated 145 mg/dL High 0-100 [facility] Comment on above: Order Comment: NOT F ASTING Reason for Exam Adult general medical examination Result Comment: LDL ATP III CLASSIFICATION LDL less than 100 mg/dL Optimal LDL 100-129 mg/dL Near or above optimal LDL 130-159 mg/dL Borderline high LDL 160-189 mg/dL High LDL greater than 189 mg/dL Very high Performed By: #### B MP, HEPATIC, LIPID #### [facility] [address] [place] [id number] [place] Triglyceride w/Reflex 145 mg/dL Normal 0-149 [facility] Comment on above: Order Comment: [...] By: #### B MP, HEPATIC, LIPID #### [facility] [address] VLDL CHOLESTEROL 29 mg/dL Normal [facility] Comment on above: Order Comment: NOT F ASTING Reason for Exam Adult general medical examination Performed By: #### B MP, HEPATIC, LIPID #### [facility] [address] Lymphocytes Auto (Bld) [#/Vo l]Ordered By: Kevin Messina on 12-26-2022 Lymphocytes (Bld) [#/Vol] 3.1 10*3/uL 1.00-4.8 [facility] Lymphocytes/100 WBC Auto (Bl d)Ordered By: Kevin Messina on 12-26-2022 Lymphocytes/100 WBC (Bld) 27.1 % . [facility] MCH Auto (RBC) [Entitic mass ]Ordered By: Kevin Messina on 12-26-2022 MCH (RBC) [Entitic mass] 30.0 pg 27.5-35.2 [facility] MCHC Auto (RBC) [Mass/Vol]Or dered By: Kevin Messina on 12-26-2022 MCHC (RBC) [Mass/Vol] 33.2 g/dL 32.5-35.6 [facility] MCV Auto (RBC) [Entitic vol] Ordered By: Kevin Messina on 12-26-2022 MCV (RBC) [Entitic vol] 90.2 fL 83.5-101 F [facility] Monocytes Auto (Bld) [#/Vol] Ordered By: Kevin Messina on 12-26-2022 Monocytes (Bld) [#/Vol] 1.0 10*3/uL 0.0-0.8 [facility] Monocytes/100 WBC Auto (Bld) Ordered By: Kevin Messina on 12-26-2022 Monocytes/100 WBC (Bld) 8.6 % . [facility] Neutrophils Auto (Bld) [#/Vo l]Ordered By: Kevin Messina on 12-26-2022 Neutrophils (Bld) [#/Vol] 7.0 10*3/uL 1.8-7.7 [facility] Neutrophils/100 WBC Auto (Bl d)Ordered By: Kevin Messina on 12-26-2022 Neutrophils/100 WBC (Bld) 60.4 % . [facility] No Panel InformationOrdered By: Kevin Messina on 12-26-2022 Pharmacy Creatinine Clearance (Chem N/A [facility] Nucleated erythrocytes [Pres ence] in Blood by Automated countOrdered By: Kevin Messina on 12-26-2022 Nucleated RBC Auto Ql (Bld) 0.1 /100{WBC} 0-0.5 [facility] Platelet mean volume Auto (B ld) [Entitic vol]Ordered By: Kevin Messina on 12-26-2022 Platelet mean volume (Bld) [Entitic vol] 7.2 fL 6.6-10.1 [facility] Platelets Auto (Bld) [#/Vol] Ordered By: Kevin Messina on 12-26-2022 Platelets (Bld) [#/Vol] 307 10*3/uL 150-450 [facility] Potassium [Moles/volume] in Serum or PlasmaOrdered By: Kevin Messina on 12-26-2022 Potassium [Moles/Vol] 3.9 mmol/L 3.5-5.1 [facility] Protein [Mass/volume] in Ser um or PlasmaOrdered By: Kevin Messina on 12-26-2022 Protein [Mass/Vol] 6.9 g/dL 6.4-8.9 [facility] RBC Auto (Bld) [#/Vol]Ordere d By: Kevin Messina on 12-26-2022 RBC (Bld) [#/Vol] 4.97 10*6/uL 3.90-5.60 [facility] Serum or plasma albumin/glob ulin mass ratioOrdered By: Kevin Messina on 12-26-2022 Albumin/Globulin [Mass ratio] 1.7 {ratio} [facility] Serum or plasma anion gap de terminationOrdered By: Kevin Messina on 12-26-2022 Anion gap [Moles/Vol] 9.0 mmol/L 6.0-15.0 [facility] Serum or plasma high density lipoprotein (HDL) cholesterol measurementOrdered By: Kevin Messina on 12-26-2022 Cholesterol in HDL [Mass/Vol] 43 mg/dL 29- [facility] Comment on above: HDL CHOL ATP-III CLA SSIFICATION Cardiovascular RiskHDL > or equal to 60 mg/dL LOWHDL < 40 mg/dL HIGH Serum or plasma non-glucuron idated bilirubin measurement (mass/volume)Ordered By: Kevin Messina on 12-26-2022 Bilirubin.indirect [Mass/Vol] 0.2 mg/dL [facility] Serum or plasma total choles terol/high density lipoprotein (HDL) cholesterol mass ratOrdered By: Kevin Messina on 12-26-2022 Cholesterol.total/Choles terol in HDL [Mass ratio] 5.0 {ratio} <5.0 [facility] Sodium [Moles/volume] in Ser um or PlasmaOrdered By: Kevin Messina on 12-26-2022 Sodium [Moles/Vol] 139 mmol/L 136-145 [facility] Triglyceride [Mass/volume] i n Serum or PlasmaOrdered By: Kevin Messina on 12-26-2022 Triglyceride [Mass/Vol] 145 mg/dL 0-149 [facility] Comment on above: TRIG ATP III CLASSIF ICATIONTRIG less than 150 mg/dL NormalTRIG 150-199 mg/dL Borderline highTRIG 200-500 mg/dL High TRIG greater than 500 mg/dL Very highStandard traceable to the Center for Disease Conrtrol and Prevention (CDC) test method. Urea nitrogen [Mass/volume] in Serum or PlasmaOrdered By: Kevin Messina on 12-26-2022 Urea nitrogen [Mass/Vol] 11 mg/dL 7- [facility] WBC Auto (Bld) [#/Vol]Ordere d By: Kevin Messina on 12-26-2022 WBC (Bld) [#/Vol] 11.5 10*3/uL 4.1-10.5 [facility] XR cervical spine LAT/FLX/EX Ton 12-26-2022 XR cervical spine LAT/FLX/EXT [facility] [place] [address] XRay Report Signed Patient: Segun Fuentes MR#: [id number] 450 : 1975 Acct:[id number] Age/Sex: 47 / M ADM Date: 12/26/22 Loc: XDS Room: Type: [facility] Attending Dr: Kevin Messina DO Copies to: [...] Aamir Joseph M.D.12/26/2022 4:37 PM Dictation Location: [place] [address] Transcribed By: [facility] 12/26/22 1637 Dictated By: Aamir Joseph II, MD 12/26/22 1634 Signed By: 12/26/22 1637 Normal [facility] [facility] CBC AUTO DIFFon 12-04-2022 BASO # 0.1 103/ul Normal 0.0-0.1 [facility] Comment on above: Performed By: #### C BC #### [facility] [address] [address] [address] Mireya Bliss Basophils/100 WBC (Bld) 0.7 % Normal 0.2-2.0 [facility] Comment on above: Performed By: #### C BC #### [facility] [address] [place] [address] Dr. Mireya Bliss EO # 0.1 103/ul Normal 0.0-0.7 [facility] Comment on above: Performed By: #### C BC #### [facility] [address] [place] [address] Dr. Mireya Bliss Eosinophils/100 WBC (Bld) 0.7 % Critically low 0.9-7.0 [facility] Comment on above: Performed By: #### C BC #### [facility] [address] [place] [address] Dr. Mireya Bliss Erythrocyte distribution width (RBC) [Ratio] 13.4 % Normal 11.0-15.0 [facility] Comment on above: Performed By: #### C BC #### [facility] [address] [place] [address] Dr. Mireya Bliss Hematocrit (Bld) [Volume fraction] 39.5 % Critically low 42.0-54.0 [facility] Comment on above: Performed By: #### C BC #### [facility] [address] [place] [address] Dr. Mireya Bliss Hemoglobin (Bld) [Mass/Vol] 13.7 g/dL Critically low 14.0-18.0 [facility] Comment on above: Performed By: #### C BC #### [facility] [address] [place] [address] Dr. Mireya Bliss IG # 0.04 10e3/ul Critically high 0.00-0.03 [facility] Comment on above: Performed By: #### C BC #### [facility] [address] [place] [address] Dr. Mireya Bliss IG % 0.3 % Normal 0.0-0.5 [facility] Comment on above: Performed By: #### C BC #### [facility] [address] [place] [address] Dr. Mireya Bliss LYMPH # 2.8 103/ul Normal 1.2-3.8 [facility] Comment on above: Performed By: #### C BC #### [facility] [address] [place] [address] Dr. Mireya Bliss Lymphocytes/100 WBC (Bld) 23.6 % Normal 20.5-60.0 [facility] Comment on above: Performed By: #### C BC #### [facility] [address] [place] [address] Dr. Mireya Bliss MANUAL DIFF REQ NO Normal [facility] Comment on above: Performed By: #### C BC #### [facility] [address] [place] [address] Dr. Mireya Bliss MCH (RBC) [Entitic mass] 30.2 pg Normal 25.9-34.0 [facility] Comment on above: Performed By: #### C BC #### [facility] [address] [place] [address] Dr. Mireya Bliss MCHC (RBC) [Mass/Vol] 34.7 g/dL Normal 29.9-35.2 [facility] Comment on above: Performed By: #### C BC #### [facility] [address] [place] [address] Dr. Mireya Bliss MCV (RBC) [Entitic vol] 87.2 fL Normal 80.0-94.0 [facility] Comment on above: Performed By: #### C BC #### [facility] [address] [place] [address] Dr. Mireya Bliss MONO # 0.9 103/ul Critically high 0.3-0.8 [facility] Comment on above: Performed By: #### C BC #### [facility] [address] [place] [address] Dr. Mireya Bliss Monocytes/100 WBC (Bld) 7.2 % Normal 1.7-12.0 [facility] Comment on above: Performed By: #### C BC #### [facility] [address] [place] [address] Dr. Mireya Bliss NEUT # 7.9 103/ul Critically high 1.4-6.5 [facility] Comment on above: Performed By: #### C BC #### [facility] [address] [address] [address] Mireya Bliss Neutrophils/100 WBC (Bld) 67.5 % Normal 43.0-75.0 [facility] Comment on above: Performed By: #### C BC #### [facility] [address] [address] [address] Mireya Bliss Platelet mean volume (Bld) [Entitic vol] 8.5 fL Critically low 9.5-13.5 [facility] Comment on above: Performed By: #### C BC #### [facility] [address] [address] [address] Mireya Bliss PLT 278 103/ul Normal 150-450 [facility] Comment on above: Performed By: #### C BC #### [facility] [address] [address] [address] Mireya Bliss RBC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 Start: 06-26-2023 Office outpatient vi sit 25 minutes Kevin Oberer [facility] [place] Start: 12-30-2022 End: 12-30-2022 ambulatory Kevin Oberer Other [facility] Other Start: 12-30-2022 Telephone encounter Kevin Oberer [facility] [place] Start: 12-28-2022 End: 12-28-2022 ambulatory Kevin Oberer Other [facility] Other Start: 12-28-2022 Telephone encounter Kevin Oberer [facility] Start: 12-26-2022 End: 12-26-2022 ambulatory DO Kevin Oberer Work Phone: [facility] Work Phone: Start: 12-26-2022 End: 12-26-2022 Patient encounter procedure DO Kevin Oberer Work Phone: [facility] Start: 12-26-2022 End: 12-26-2022 ambulatory Kevin Obbrando Facility:[facility] Start: 12-26-2022 Office outpatient vi sit 25 minutes Kevin Obbrando [facility] Start: 12-04-2022 End: 12-04-[address] KEVIN MESSINA Facility:[facility] Start: 06-28-2022 End: 06-28-2022 ambulatory Kevin Oberenicole Other [facility] Other Start: 06-28-2022 Encounter for genera l adult medical examination without abnormal findings Kevin Oberenicole [facility] Start: 06-28-2022 Office outpatient vi sit 40 minutes Kevin Obbrando [facility] Start: 06-10-2022 End: 06-10-[address] KEVIN MESSINA Facility:[facility] Start: 01-19-2022 End: 01-19-[address] AAMIR HUNTER Facility:[facility] Start: 01-12-2022 End: 01-12-2022 ambulatory Kevin Messina Facility:[facility] Start: 01-12-2022 Encounter for genera l adult medical examination without abnormal findings Kevin Oberenicole [facility] Start: 12-16-2021 End: 12-16-2021 ambulatory Kevin Obbrando Other [facility] Other Start: 12-16-2021 Telephone encounter Kevin Oberer [facility] Start: 12-14-2021 End: 12-14-2021 ambulatory Kevin Oberer Other [facility] Other Start: 12-14-2021 Office outpatient vi sit 25 minutes Kevin Oberer [facility] [place] Start: 12-14-2021 Physical examination Kevin Oberer [facility] Procedures Date Procedure Procedure Detail Performing Clinician Start: 12-26-2022 X-ray of cervical spine DO Kevin Oberer Work Phone: Immunizations Immunization Date Immunization Notes Care Provider Vaughn broussard 09-30-2003 tetanus toxoid, adsorbed Kevin Oberer Other [facility] Other NEGATED: Highlighted row has not occurred!06-26-2023 influenza, seasonal, injectable Patient Objection Kevin Oberer Other [facility] Other NEGATED: Highlighted row has not occurred!06-28-2022 influenza, injectable, quadrivalent, preservative free Patient Objection Kevin Oberer Other [facility] Other NEGATED: Highlighted row has not occurred!12-15-2020 influenza, seasonal, injectable Patient Objection Kevin Oberer Other [facility] Other NEGATED: Highlighted row has not occurred!02-26-2019 influenza, seasonal, injectable Patient Objection Kevin Oberer Other [facility] Other Payers Date Payer Category Payer Self-pay 1975 Unknown [id number] 2.16.84 [id number] 1975 Unknown [id number] 2.16.84 [id number] 1975 Unknown [id number] 2.16.84 [id number] 1957 Unknown [id number] 2. [id number] Unknown [id number] 2.16.8 [id number] Unknown [id number] 2.16.8 [id number] Social History Date Type Detail Facility Unknown if ever smoked [facility] Other Sex Assigned At Sex Assigned At Bir th [facility] Other Start: 1975 Sex Assigned At Male F [facility] Evaluation note 06-26-2023 Note Date & Type [...] and sooner as needed or pending above. [facility] Other Evaluation note 12-26-2022 Note Date & [...] - R58) Cause was unknown, spontaneously resolved. [facility] emergency room bleeding labs were negative. Nov, [...] RTO pending above and sooner as needed. [facility] Other Evaluation note 06-28-2022 Note Date & [...] We will continue to fill out his [facility] paperwork yearly and not due today. We will also schedule 6-month follow-ups to satisfy his twice yearly visit work requirement Jun, Family history of cardiovascular disease (ICD-10 - Z82.49) We again discussed whether to refer him to cardiology. He has family history of heart disease, he smokes. He would like to do so. Refer to [facility] for cardiac screening consult. Discussed I cannot [...] A1c (fasting hyperglycemia) and sooner as needed. [facility] Other Evaluation note 12-16-2021 Note Date & Type Note Facility 12-16-2021 Evaluation note Encounter Date Diagnosis Assessment Notes Nov, Cough (ICD-10 - R05.9) Nov, Smoker (ICD-10 - F17.200) [facility] Other Evaluation note 12-14-2021 Note Date & [...] BMP, hepatic panel, lipid profile. Refer to [facility] for cardiac risk/screening consult and to see whether they want to pursue stress test versus other work-up. Nov, Smoker (ICD-10 - F17.200) Discussed overwhelmingly his biggest cardiovascular and pulmonary risk factor his is ongoing smoking. I gave him the name of the [employer] to call. Discussed they can give plenty of quit smoking information including hypnotism schedules. I am not sure if they know anything about the laser treatments he tried before. I do not. He can also check at work. I offered referral to [facility] quit smoking program and he declined. [...] needed Please send today's EMR note to [facility] Other Evaluation note Note Date & Type Note Facility Evaluation note No Information [facility] Other Evaluation note Note Date & Type Note Facility Evaluation note No assessment information availa ble [facility] Work Phone: History general Narrative - Reported Note Date & Type Note Facility History general Narrative - Reported Type Medical History Acid peptic [id number] Medical History Left epididynocele-2005 Medical History Acne Vulgaris-2006 Medical History Panic disorder-2006 Medical History Osteoarthritis [id number] Medical History GERD, hiatal hernia-2017 Medical History Cluster headaches Medical History Adjustment disorder with mixed anxiety and depressed mood Medical History Seasonal allergic rh initis due to pollen Surgical History Myringotomy as a child Surgical History T&A age 7 Surgical History Right shoulder scope to shave bone spur- [address] Heller ( [facility]), GERD 2017 Hospitalization History No know Hospitalization history [facility] Other History general Narrative - Reported Note Date & Type Note Facility History general Narrative - Reported Type Medical History Acid peptic [id number] Medical History Left epididynocele-2006 Medical History Acne Vulgaris-2006 Medical History Panic disorder-2006 Medical History Osteoarthritis [id number] Medical History GERD, hiatal hernia-2017 Medical History Adjustment disorder with mixed anxiety and depressed mood Medical History Seasonal allergic rh initis due to pollen Surgical History Myringotomy as a child Surgical History T&A age 7 Surgical History Right shoulder scope to shave bone spur- [address] Heller ( [facility]), GERD 2017 Hospitalization History No know Hospitalization history [facility] Other History general Narrative - Reported Note Date & Type Note Facility History general Narrative - Reported Type Medical History Acid peptic [id number] Medical History Left epididynocele-2006 Medical History Acne Vulgaris-2006 Medical History Panic disorder-2006 Medical History Osteoarthritis [id number] Medical History GERD, hiatal hernia-2017 Medical History Adjustment disorder with mixed anxiety and depressed mood Medical History Seasonal allergic rh initis due to pollen Surgical History Myringotomy as a child Surgical History T&A age 7 Surgical History Right shoulder scope to shave bone spur- [address] Heller ( [facility]), GERD 2017 Hospitalization History No Hospitalizati on history information [facility] Other Summary Purpose Family History No Family History Records FoundNo Family History Records FoundNo Family History Records Found Advance Directives Advance Directive Response Recorded Date/ Time Advance Directives No February 14 8 8:31am Reason for Referral Reason CARDIAC SCREENING Diagnosis 1 Family history of ca rdiac disorder in father (Z82.49) Referral Organization [facility] Family Bessy Bearden Referring Provider First Name Kevin Referring Provider Last Name Oberer Referring Provider Specialty Family Prac nivia Referred Organization [facility] Referred Provider Abelardo Baker Referred Address [address],[place],[address] Referred Provider Specialty Cardiac Surg ary Referral Priority Routine General Notes Milagros Fernández Harris 2021 11:05:31 AM >REFERRAL FAXED Reason cardiac work up fami ly HX Diagnosis 1 Family history of ca rdiovascular disease (Z82.49) Referral Organization [facility] Family [address] Referring Provider First Name Kevin Referring Provider Last Name Oberer Referring Provider Specialty Family Prac nivia Referred Organization [facility] Referred Address [address],[place],[address] Referred Provider Specialty Cardiology Referral Priority Routine General Notes Milagros Fernández Harris 2021 02:40:56 PM >REFERRAL SENT Chief Complaint and Reason for Visit Chief Complaint M54.2 Z00.00 Additional Source Comments (unrecognized sect ion and content) No Status Records FoundNo Status Records FoundNo Status Records Found INFORMATION SOURCE (unrecogn ized section and content) DATE CREATED AUTHOR 01/13/2021 [facility] DATE CREATED AUTHOR AUTHOR'S ORGANIZ ATION [facility]/06[facility]2022 [facility] DATE CREATED AUTHOR AUTHOR'S ORGANIZ ATION 12/28/2022 [facility] REASON FOR VISIT (unrecogniz ed section [...] this week LB, did have Xrays at [facility] with arthritis LB, lots of OA L5-S1, mild L4-L5, pharmacy [facility] LB, 11 pound weight gain, Mood, OA, [...] activities exacerbate - jld, Pt went to [facility] two weeks ago for the forearm, no diagnosis given - jld, 2018 cervical spine x-rays mild to moderate OA, GI, FMLA, lumbar painSOCIAL NEEDSlabs/neck xray results6 month Follow up, pharmacy: [facility] - jld, flu shot: declines - jld, [...] BE BASED ON THE PRIMARY CLINICAL RECORDS. [employer] provides no warranty or guarantee of the accuracy or completeness of information in this document.
--- NOTE | 2024-11-11 06:36 | XR_ITS ---
The [address] [address] Patient Name: NAI STORM MRN: [id number] date: 1975 Sex: M Assigned Patient Location: ER Current Patient Location: ER Accession/Order Number: [id number] Exam Date: 11/11/2024 06:41 Report Date: 11/11/2024 07:16 At the request of: SANDRITA FERRARA Procedure: XR ribs LT min 3V w CXR1V EXAMINATION: XR ribs LT min 3V w CXR1V HISTORY: pain after coughing COMPARISON: No relevant comparison available. FINDINGS: LUNGS: No significant pulmonary parenchymal abnormalities. PLEURA: No pneumothorax, effusion, or pleural thickening. MEDIASTINUM: No visible mass or adenopathy. CARDIAC: No cardiomegaly or cardiac silhouette abnormality. RIBS: No acute rib fractures OTHER: Negative. XR/XR ribs LT min 3V w CXR1V IMPRESSION: Clear lungs, no acute rib fracture Electronically authenticated by: OSMAR WALTER Date: 11/11/2024 07:16
--- NOTE | 2024-11-11 06:37 | ED_ITS ---
HPI HPI - General Adult General Chief complaint: Upper Respiratory Infection Stated complaint: COUGH, CHEST PAIN Time Seen by Provider: 11/11/24 06:32 Source: patient Source information: Pain is in the L axillary area --more pronounced when he coughs Mode of arrival: ambulance History of Present Illness HPI narrative: 49-year-old male presents for left lateral rib pain. It started few days ago and it started when he was coughing. He did not fall and nothing struck him there. It is a sharp very localized pain in his made him come in to get checked out. Related Data Home Medications ?Medication ?Instructions ?Recorded ?Confirmed escitalopram oxalate 5 mg tablet mg 11/11/24 Allergies Allergy/AdvReac Type Severity Reaction Status Date / Time No Known Drug Allergies Allergy Verified 11/11/24 06:10 Opioid HPI Opioid Management Most Recent Opioid Data: No Data to Display Review of Systems ROS Narrative A ten point review of systems is negative except as noted above. PFSH PFSH Social History Little interest or pleasure in doing things: not at all Feeling down, depressed, or hopeless: not at all Exam Narrative Exam Narrative: Nurses note and vital signs reviewed and patient is not hypoxic. General: The patient appears well and in no apparent distress. Patient is resting comfortably on cart. Skin: Warm, dry, no pallor noted. There is no rash noted. Head: Normocephalic, atraumatic Eye: Normal conjunctiva, no drainage Ears, Nose, Mouth, and Throat: oral mucosa is moist. Nares patent. Cardiovascular: Regular Rate and Rhythm Respiratory: Patient is in no distress, no accessory muscle use, lungs are clear to auscultation, no wheezing, rales or rhonchi. There is no crepitus in the chest wall. He has a focal area of tenderness in the left lateral rib area below the axilla. Breath sounds are equal bilaterally. Back: non-tender GI: Soft and nontender Musculoskeletal: The patient has no evidence of calf tenderness, no pitting edema, symmetrical pulses noted bilaterally Neurological: A&O, normal speech Psychiatric: Cooperative Constitutional Vital Signs, click to edit/add: Last Vital Signs Temp 98 F 11/11/24 06:04 Pulse 72 11/11/24 06:04 Resp 16 11/11/24 06:04 BP 123/78 11/11/24 06:04 Pulse Ox 98 11/11/24 06:04 O2 Del Method Room Air 11/11/24 06:04 Course Vital Signs Vital signs: Vital Signs Temperature 98 F 11/11/24 06:04 Pulse Rate 72 11/11/24 06:04 Respiratory Rate 16 11/11/24 06:04 Blood Pressure 123/78 11/11/24 06:04 Pulse Oximetry 98 11/11/24 06:04 Oxygen Delivery Method Room Air 11/11/24 06:04 Temperature 98 F 11/11/24 06:04 Pulse Rate 72 11/11/24 06:04 Respiratory Rate 16 11/11/24 06:04 Blood Pressure 123/78 11/11/24 06:04 Pulse Oximetry 98 11/11/24 06:04 Oxygen Delivery Method Room Air 11/11/24 06:04 Medical Decision Making MDM Narrative Medical decision making narrative: Rib x-rays are ordered and the patient is signed out to Dr. Delgadillo at change of shift. Differential Diagnosis Differential Diagnosis: Pulled muscle, rib fracture, pneumothorax Discharge Plan Discharge Chief Complaint: Upper Respiratory Infection Clinical Impression: Chest wall pain Patient Disposition: Still a Patient Prescriptions / Home Meds: No Action escitalopram oxalate 5 mg tablet Print Language: New Zealander Referrals: DAE LUNA [Primary Care Provider] - 1 week
[2024-11-11 07:17] VITALS: BP 117/72; PULSE 66; O2SAT 97
[2024-11-11] MEDS: KETOROLAC TROMETHAMINE 30 MG/ML VIAL IM (07:54)
== END 2024-11-11 08:04 | disposition home or self-care (01) ==
PROVIDERS: Emergency Provider Emergency Medicine; PCP Nurse Practitioner Family
DX: R07.89 Other chest pain (principal)
CPT/HCPCS: 71101; 96372; 99284; J1885

== ENCOUNTER 2024-11-18 09:46 | Outpatient (OUT) | payer OTHER, SELFPAY ==
--- NOTE | 2024-11-18 | XR_ITS ---
The [address] [address] Patient Name: NAI STORM MRN: [id number] date: 1975 Sex: M Assigned Patient Location: Current Patient Location: Accession/Order Number: [id number] Exam Date: 11/18/2024 09:52 Report Date: 11/18/2024 17:27 At the request of: [place] Procedure: XR cervical spine w flex/ext EXAM: XR cervical spine w flex/ext HISTORY: CERVICAL SPINE PAIN COMPARISON: None. TECHNIQUE: 4 views of the cervical spine including flexion and extension. FINDINGS: Subtle convex left curvature of the cervical spine. Odontoid process appears intact, as seen. Lateral pillars appear preserved. Mild to moderate disc space narrowing and endplate spur along the cervical spine most pronounced at C4-C5 and C5-C6. No malalignment is seen with flexion and extension. No prevertebral soft tissue swelling. Upper lungs appear clear. XR/XR cervical spine w flex/ext IMPRESSION: 1. No acute fracture. No signs of dynamic instability. 2. Convex left curvature of the cervical spine with [id number] degenerative disc disease. Electronically authenticated by: MIKE HERNANDEZ Date: 11/18/2024 17:27
--- OUTSIDE RECORDS SUMMARY | 2024-11-18 10:05 | XMS_ITS | CCD ---
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 Performed By: #### A 1C [facility] eA ####[place] [id number] [place] [id number] [facility] HbA1c (Bld) [Mass fraction] 5.6 % Normal 4.3-5.6 [facility] Comment on above: Order Comment: Reaso n for Exam Adult general medical examination Result Comment: Incr eased risk for diabetes: 5.7 - 6.4 diabetes: >6.4 glycemic control for adults with diabetes: <7.0 Performed By: #### A 1C [facility] eA ####[place] [id number] [place] [phone] [facility] Alanine aminotransferase [En zymatic activity/volume] in Serum or PlasmaOrdered By: Kevin Messina on 12-26-2022 ALT [Catalytic activity/Vol] 36 U/L 7- [facility] Albumin [Mass/volume] in Ser um or Plasma by Bromocresol green (BCG) dye binding methoOrdered By: Kevin Messina on 12-26-2022 Albumin BCG dye [Mass/Vol] 4.3 g/dL 3.5-5.7 [facility] Alkaline phosphatase [Enzyma tic activity/volume] in Serum or PlasmaOrdered By: Kevin Messina on 12-26-2022 ALP [Catalytic activity/Vol] 66 U/L 34-104 [facility] Aspartate aminotransferase [ Enzymatic activity/volume] in Serum or PlasmaOrdered By: Kevin Messina on 12-26-2022 AST [Catalytic activity/Vol] 23 U/L 13-39 [facility] Basic Metabolic Panelon 12-01 Anion gap [Moles/Vol] 9.0 mmol/L Normal 6.0-15.0 [facility] Comment on above: Order Comment: NOT F ASTING Reason for Exam Adult general medical examination Performed By: #### B MP, HEPATIC, LIPID #### [facility] [address] [place] [phone] [facility] Calcium [Mass/Vol] 8.9 mg/dL Normal 8.6-10.3 [facility] Comment on above: Order Comment: NOT F ASTING Reason for Exam Adult general medical examination Performed By: #### B MP, HEPATIC, LIPID #### [facility] [address] [place] [address] [place] Chloride [Moles/Vol] 106 mmol/L Normal 98-107 [facility] Comment on above: Order Comment: NOT F ASTING Reason for Exam Adult general medical examination Performed By: #### B MP, HEPATIC, LIPID #### [facility] [address] [place] [address] [place] CO2 [Moles/Vol] 27.9 mmol/L Normal 21.0-31.0 [facility] Comment on above: Order Comment: NOT F ASTING Reason for Exam Adult general medical examination Performed By: #### B MP, HEPATIC, LIPID #### [facility] [address] [place] [address] [place] Creatinine [Mass/Vol] 0.82 mg/dL Normal 0.70-1.30 [facility] Comment on above: Order Comment: NOT F ASTING Reason for Exam Adult general medical examination Performed By: #### B MP, HEPATIC, LIPID #### [facility] [address] [place] [address] [place] GFR/1.73 sq M.predicted MDRD (S/P/Bld) [Vol rate/Area] mL/min/{1.73_m2} Normal [facility] Comment on above: Order Comment: NOT F ASTING Reason for Exam Adult general medical examination Performed By: #### B MP, HEPATIC, LIPID #### [facility] [address] Glucose [Mass/Vol] 96 mg/dL Normal 70-100 [facility] Comment on above: Order Comment: NOT F ASTING Reason for Exam Adult general medical examination Result Comment: [facility] Glucose Reference Range is dependent on time and content of last meal. Glucose of more than 200 mg/dL in a nonstressed, ambulatory subject supports the diagnosis of Diabetes Mellitus. ADA recommended reference range Performed By: #### B MP, HEPATIC, LIPID #### [facility] [address] [place] [address] [place] Potassium [Moles/Vol] 3.9 mmol/L Normal 3.5-5.1 [facility] Comment on above: Order Comment: NOT F ASTING Reason for Exam Adult general medical examination Performed By: #### B MP, HEPATIC, LIPID #### [facility] [address] [place] [phone] [place] Sodium [Moles/Vol] 139 mmol/L Normal 136-145 [facility] Comment on above: Order Comment: NOT F ASTING Reason for Exam Adult general medical examination Performed By: #### B MP, HEPATIC, LIPID #### [facility] [address] [place] [phone] [place] Urea nitrogen [Mass/Vol] 11 mg/dL Normal 7-25 [facility] Comment on above: Order Comment: NOT F ASTING Reason for Exam Adult general medical examination Performed By: #### B MP, HEPATIC, LIPID #### [facility] [address] [place] [phone] [facility] Basophils Auto (Bld) [#/Vol] Ordered By: Kevin Messina on 12-26-2022 Basophils (Bld) [#/Vol] 0.1 10*3/uL 0.0-0.2 [facility] Basophils/100 WBC Auto (Bld) Ordered By: Kevin Messina on 12-26-2022 Basophils/100 WBC (Bld) 0.7 % . [facility] Bilirubin.direct [Mass/volum e] in Serum or PlasmaOrdered By: Kevin Messina on 12-26-2022 Bilirubin.direct [Mass/Vol] 0.10 mg/dL 0.03-0.18 [facility] Bilirubin.total [Mass/volume ] in Serum or PlasmaOrdered By: Kevin Messina on 12-26-2022 Bilirubin [Mass/Vol] 0.3 mg/dL 0.3-1.0 [facility] Calcium [Mass/volume] in Ser um or PlasmaOrdered By: Kevin Messina on 12-26-2022 Calcium [Mass/Vol] 8.9 mg/dL 8.6-10.3 [facility] Carbon dioxide, total [Moles /volume] in Serum or PlasmaOrdered By: Kevin Messina on 12-26-2022 CO2 [Moles/Vol] 27.9 mmol/L 21.0-31.0 [facility] Chloride [Moles/volume] in S samuel or PlasmaOrdered By: Kevin Messina on 12-26-2022 Chloride [Moles/Vol] 106 mmol/L 98-107 [facility] Cholesterol [Mass/volume] in Serum or PlasmaOrdered By: Kevin Messina on 12-26-2022 Cholesterol [Mass/Vol] 217 mg/dL 140-200 [facility] Comment on above: Chol less than 200 m g/dl low riskChol 201-239 mg/dl borderline riskChol 240 mg/dl and greater high risk Cholesterol in LDL Calc [Mas s/Vol]Ordered By: Kevin Messina on 12-26-2022 Cholesterol in LDL [Mass/Vol] 145 mg/dL 0-100 [facility] Comment on above: LDL ATP III CLASSIFI CATIONLDL less than 100 mg/dL OptimalLDL 100-129 mg/dL Near or above optimalLDL 130-159 mg/dL Borderline highLDL 160-189 mg/dL HighLDL greater than 189 mg/dL Very high Cholesterol in VLDL Calc [Ma ss/Vol]Ordered By: Kevin Messina on 12-26-2022 Cholesterol in VLDL [Mass/Vol] 29 mg/dL [facility] Complete Blood Count Auto Di ffon 12-26-2022 Basophils (Bld) [#/Vol] 0.1 10*3/uL Normal 0.0-0.2 [facility] Comment on above: Order Comment: Reaso n for Exam Adult general medical examination Result Comment: PERF ORMED BY: [place] [address] PATHOLOGIST RAILWAY EQUIPMENT OPERATOR MOISES SHEPHERD M.D. Performed By: #### C BC #### [address] Basophils/100 WBC (Bld) 0.7 % Normal . [facility] Comment on above: Order Comment: Reaso n for Exam Adult general medical examination Performed By: #### C BC #### [facility] [address] [place] [address] Eosinophils (Bld) [#/Vol] 0.4 10*3/uL Normal 0.0-0.45 [facility] Comment on above: Order Comment: Reaso n for Exam Adult general medical examination Performed By: #### C BC #### [facility] [address] [place] [address] Eosinophils/100 WBC (Bld) 3.2 % Normal . [facility] Comment on above: Order Comment: Reaso n for Exam Adult general medical examination Performed By: #### C BC #### [address] Erythrocyte distribution width (RBC) [Ratio] 14.2 % Normal 12.0-14.8 [facility] Comment on above: Order Comment: Reaso n for Exam Adult general medical examination Performed By: #### C BC #### [address] Hematocrit (Bld) [Volume fraction] 44.8 % Normal 38.8-50.0 [facility] Comment on above: Order Comment: Reaso n for Exam Adult general medical examination Performed By: #### C BC #### [address] Hemoglobin (Bld) [Mass/Vol] 14.9 g/dL Normal 13.0-17.0 [facility] Comment on above: Order Comment: Reaso n for Exam Adult general medical examination Performed By: #### C BC #### [address] Lymphocytes (Bld) [#/Vol] 3.1 10*3/uL Normal 1.00-4.8 [facility] Comment on above: Order Comment: Reaso n for Exam Adult general medical examination Performed By: #### C BC #### [address] Lymphocytes/100 WBC (Bld) 27.1 % Normal . [facility] Comment on above: Order Comment: Reaso n for Exam Adult general medical examination Performed By: #### C BC #### [address] MCH (RBC) [Entitic mass] 30.0 pg Normal 27.5-35.2 [facility] Comment on above: Order Comment: Reaso n for Exam Adult general medical examination Performed By: #### C BC #### [address] MCV (RBC) [Entitic vol] 90.2 fL Normal 83.5-101 [facility] Comment on above: Order Comment: Reaso n for Exam Adult general medical examination Performed By: #### C BC #### [address] Mean Corpuscular HGB Conc 33.2 g/dL Normal 32.5-35.6 [facility] Comment on above: Order Comment: Reaso n for Exam Adult general medical examination Performed By: #### C BC #### [address] [place] [address] [place] Monocytes (Bld) [#/Vol] 1.0 10*3/uL High 0.0-0.8 [facility] Comment on above: Order Comment: Reaso n for Exam Adult general medical examination Performed By: #### C BC #### [facility] [address] [place] [address] Monocytes/100 WBC (Bld) 8.6 % Normal . [facility] Comment on above: Order Comment: Reaso n for Exam Adult general medical examination Performed By: #### C BC #### [facility] [address] [place] [address] Neutrophils (Bld) [#/Vol] 7.0 10*3/uL Normal 1.8-7.7 [facility] Comment on above: Order Comment: Reaso n for Exam Adult general medical examination Performed By: #### C BC #### [facility] [address] [place] [address] [place] Neutrophils/100 WBC (Bld) 60.4 % Normal . [facility] Comment on above: Order Comment: Reaso n for Exam Adult general medical examination Performed By: #### C BC #### [facility] [address] [place] [address] NRBC% 0.1 /100{WBC} Normal 0-0.5 [facility] Comment on above: Order Comment: Reaso n for Exam Adult general medical examination Performed By: #### C BC #### [facility] [address] [place] [address] [place] Platelet mean volume (Bld) [Entitic vol] 7.2 fL Normal 6.6-10.1 [facility] Comment on above: Order Comment: Reaso n for Exam Adult general medical examination Performed By: #### C BC #### [facility] [address] [place] [address] [place] Platelets (Bld) [#/Vol] 307 10*3/uL Normal 150-450 [facility] Comment on above: Order Comment: Reaso n for Exam Adult general medical examination Performed By: #### C BC #### [address] [place] [address] [place] RBC (Bld) [#/Vol] 4.97 10*6/uL Normal 3.90-5.60 [facility] Comment on above: Order Comment: Reaso n for Exam Adult general medical examination Performed By: #### C BC #### [facility] [address] WBC (Bld) [#/Vol] 11.5 10*3/uL High 4.1-10.5 [facility] Comment on above: Order Comment: Reaso n for Exam Adult general medical examination Performed By: #### C BC #### [facility] [address] Creatinine [Mass/volume] in Serum or PlasmaOrdered By: Kevin Messina on 12-26-2022 Creatinine [Mass/Vol] 0.82 mg/dL 0.70-1.30 [facility] Eosinophils Auto (Bld) [#/Vo l]Ordered By: Kevin Messina on 12-26-2022 Eosinophils (Bld) [#/Vol] 0.4 10*3/uL 0.0-0.45 [facility] Eosinophils/100 WBC Auto (Bl d)Ordered By: Kevin Messina on 12-26-2022 Eosinophils/100 WBC (Bld) 3.2 % . [facility] Erythrocyte distribution wid th Auto (RBC) [Ratio]Ordered By: Kevin Messina on 12-26-2022 Erythrocyte distribution width (RBC) [Ratio] 14.2 % 12.0-14.8 [facility] Globulin Calc (S) [Mass/Vol] Ordered By: Kevin Messina on 12-26-2022 Globulin (S) [Mass/Vol] 2.6 g/dL [facility] Glucose [Mass/volume] in Ser um or PlasmaOrdered By: Kevin Messina on 12-26-2022 Glucose [Mass/Vol] 96 mg/dL 70-100 [facility] Comment on above: ADA recommended refe rence rangeRandom Glucose Reference Range is dependent on time and content of last meal. Glucose of more than 200 mg/dL in a nonstressed, ambulatory subject supports the diagnosis of Diabetes Mellitus. Hematocrit Auto (Bld) [Volum e fraction]Ordered By: Kevin Messina on 12-26-2022 Hematocrit (Bld) [Volume fraction] 44.8 % 38.8-50.0 [facility] Hemoglobin [Mass/volume] in BloodOrdered By: Kevin Messina on 12-26-2022 Hemoglobin (Bld) [Mass/Vol] 14.9 g/dL 13.0-17.0 [facility] Hepatic Panelon 12-26-2022 Albumin [Mass/Vol] 4.3 g/dL Normal 3.5-5.7 [facility] Comment on above: Order Comment: NOT F ASTING Reason for Exam Adult general medical examination Performed By: #### B MP, HEPATIC, LIPID #### [facility] [address] Albumin/Globulin [Mass ratio] 1.7 {ratio} Normal [facility] Comment on above: Order Comment: NOT F ASTING Reason for Exam Adult general medical examination Performed By: #### B MP, HEPATIC, LIPID #### [facility] [address] [place] [address] [place] ALP [Catalytic activity/Vol] 66 U/L Normal 34-104 [facility] Comment on above: Order Comment: NOT F ASTING Reason for Exam Adult general medical examination Performed By: #### B MP, HEPATIC, LIPID #### [facility] [address] [place] [address] [place] ALT [Catalytic activity/Vol] 36 U/L Normal 7-52 [facility] Comment on above: Order Comment: NOT F ASTING Reason for Exam Adult general medical examination Performed By: #### B MP, HEPATIC, LIPID #### [facility] [address] [place] [address] [place] AST [Catalytic activity/Vol] 23 U/L Normal 13-39 [facility] Comment on above: Order Comment: NOT F ASTING Reason for Exam Adult general medical examination Performed By: #### B MP, HEPATIC, LIPID #### [facility] [address] [place] [address] [place] Bilirubin [Mass/Vol] 0.3 mg/dL Normal 0.3-1.0 [facility] Comment on above: Order Comment: NOT F ASTING Reason for Exam Adult general medical examination Performed By: #### B MP, HEPATIC, LIPID #### [facility] [address] Bilirubin,Indirect 0.2 mg/dL Normal [facility] Comment on above: Order Comment: NOT F ASTING Reason for Exam Adult general medical examination Performed By: #### B MP, HEPATIC, LIPID #### [facility] [address] Bilirubin.indirect [Mass/Vol] 0.10 mg/dL Normal 0.03-0.18 [facility] Comment on above: Order Comment: NOT F ASTING Reason for Exam Adult general medical examination Performed By: #### B MP, HEPATIC, LIPID #### [address] Globulin (S) [Mass/Vol] 2.6 g/dL Normal [facility] Comment on above: Order Comment: NOT F ASTING Reason for Exam Adult general medical examination Performed By: #### B MP, HEPATIC, LIPID #### [address] Protein [Mass/Vol] 6.9 g/dL Normal 6.4-8.9 [facility] Comment on above: Order Comment: NOT F ASTING Reason for Exam Adult general medical examination Performed By: #### B MP, HEPATIC, LIPID #### [address] Laboratory - Chemistry and C hemistry - challengeOrdered By: Kevin Messina on 12-26-2022 GFR/1.73 sq M.predicted MDRD (S/P/Bld) [Vol rate/Area] mL/min/{1.73_m2} [facility] Leukocytes [#/volume] correc nina for nucleated erythrocytes in Blood by Automated counOrdered By: Kevin Messina on 12-26-2022 WBC corrected for nucl RBC Auto (Bld) [#/Vol] 11.5 10*3/uL 4.1-10.5 [facility] Lipid Panelon 12-26-2022 Cholesterol [Mass/Vol] 217 mg/dL High 140-200 [facility] Comment on above: Order Comment: NOT F ASTING Reason for Exam Adult general medical examination Result Comment: Chol less than 200 mg/dl low risk Chol 201-239 mg/dl borderline risk Chol 240 mg/dl and greater high risk Performed By: #### B MP, HEPATIC, LIPID #### [facility] [address] [place] [id number] [facility] Cholesterol in HDL [Mass/Vol] 43 mg/dL Normal 29-71 [facility] Comment on above: Order Comment: NOT F ASTING Reason for Exam Adult general medical examination Result Comment: HDL CHOL ATP-III CLASSIFICATION Cardiovascular Risk HDL > or equal to 60 mg/dL LOW HDL < 40 mg/dL HIGH Performed By: #### B MP, HEPATIC, LIPID #### [facility] [address] Cholesterol.total/Choles terol in HDL [Mass ratio] 5.0 {ratio} Normal <5.0 [facility] Comment on above: Order Comment: NOT F ASTING Reason for Exam Adult general medical examination Result Comment: PERF ORMED BY: [place] [address] PATHOLOGIST RAILWAY EQUIPMENT OPERATOR MOISES SHEPHERD M.D. Performed By: #### B MP, HEPATIC, LIPID #### [facility] [address] [place] [address] [facility] LDL Cholesterol,Calculated 145 mg/dL High 0-100 [facility] Comment on above: Order Comment: NOT F ASTING Reason for Exam Adult general medical examination Result Comment: LDL ATP III CLASSIFICATION LDL less than 100 mg/dL Optimal LDL 100-129 mg/dL Near or above optimal LDL 130-159 mg/dL Borderline high LDL 160-189 mg/dL High LDL greater than 189 mg/dL Very high Performed By: #### B MP, HEPATIC, LIPID #### [facility] [address] [place] [id number] [place] Triglyceride w/Reflex 145 mg/dL Normal 0-149 [facility] Comment on above: Order Comment: NOT [...] By: #### B MP, HEPATIC, LIPID #### [facility] [address] VLDL CHOLESTEROL 29 mg/dL Normal [facility] Comment on above: Order Comment: NOT F ASTING Reason for Exam Adult general medical examination Performed By: #### B MP, HEPATIC, LIPID #### [facility] [address] Lymphocytes Auto (Bld) [#/Vo l]Ordered By: Kevin Messina on 12-26-2022 Lymphocytes (Bld) [#/Vol] 3.1 10*3/uL 1.00-4.8 [facility] Lymphocytes/100 WBC Auto (Bl d)Ordered By: Kevin Messina on 12-26-2022 Lymphocytes/100 WBC (Bld) 27.1 % . [facility] MCH Auto (RBC) [Entitic mass ]Ordered By: Kevin Messina on 12-26-2022 MCH (RBC) [Entitic mass] 30.0 pg 27.5-35.2 [facility] MCHC Auto (RBC) [Mass/Vol]Or dered By: Kevin Messina on 12-26-2022 MCHC (RBC) [Mass/Vol] 33.2 g/dL 32.5-35.6 [facility] MCV Auto (RBC) [Entitic vol] Ordered By: Kevin Messina on 12-26-2022 MCV (RBC) [Entitic vol] 90.2 fL 83.5-101 [facility] Monocytes Auto (Bld) [#/Vol] Ordered By: Kevin Messina on 12-26-2022 Monocytes (Bld) [#/Vol] 1.0 10*3/uL 0.0-0.8 [facility] Monocytes/100 WBC Auto (Bld) Ordered By: Kevin Messina on 12-26-2022 Monocytes/100 WBC (Bld) 8.6 % . [facility] Neutrophils Auto (Bld) [#/Vo l]Ordered By: Kevin Messina on 12-26-2022 Neutrophils (Bld) [#/Vol] 7.0 10*3/uL 1.8-7.7 [facility] Neutrophils/100 WBC Auto (Bl d)Ordered By: Kevin Messina on 12-26-2022 Neutrophils/100 WBC (Bld) 60.4 % . [facility] No Panel InformationOrdered By: Kevin Messina on 12-26-2022 Pharmacy Creatinine Clearance (Chem N/A [facility] Nucleated erythrocytes [Pres ence] in Blood by Automated countOrdered By: Kevin Messina on 12-26-2022 Nucleated RBC Auto Ql (Bld) 0.1 /100{WBC} 0-0.5 [facility] Platelet mean volume Auto (B ld) [Entitic vol]Ordered By: Kevin Messina on 12-26-2022 Platelet mean volume (Bld) [Entitic vol] 7.2 fL 6.6-10.1 [facility] Platelets Auto (Bld) [#/Vol] Ordered By: Kevin Messina on 12-26-2022 Platelets (Bld) [#/Vol] 307 10*3/uL 150-450 [facility] Potassium [Moles/volume] in Serum or PlasmaOrdered By: Kevin Messina on 12-26-2022 Potassium [Moles/Vol] 3.9 mmol/L 3.5-5.1 [facility] Protein [Mass/volume] in Ser um or PlasmaOrdered By: Kevin Messina on 12-26-2022 Protein [Mass/Vol] 6.9 g/dL 6.4-8.9 [facility] RBC Auto (Bld) [#/Vol]Ordere d By: Kevin Messina on 12-26-2022 RBC (Bld) [#/Vol] 4.97 10*6/uL 3.90-5.60 [facility] Serum or plasma albumin/glob ulin mass ratioOrdered By: Kevin Messina on 12-26-2022 Albumin/Globulin [Mass ratio] 1.7 {ratio} [facility] Serum or plasma anion gap de terminationOrdered By: Kevin Messina on 12-26-2022 Anion gap [Moles/Vol] 9.0 mmol/L 6.0-15.0 [facility] Serum or plasma high density lipoprotein (HDL) cholesterol measurementOrdered By: Kevin Messina on 12-26-2022 Cholesterol in HDL [Mass/Vol] 43 mg/dL 29- [facility] Comment on above: HDL CHOL ATP-III CLA SSIFICATION Cardiovascular RiskHDL > or equal to 60 mg/dL LOWHDL < 40 mg/dL HIGH Serum or plasma non-glucuron idated bilirubin measurement (mass/volume)Ordered By: Kevin Messina on 12-26-2022 Bilirubin.indirect [Mass/Vol] 0.2 mg/dL [facility] Serum or plasma total choles terol/high density lipoprotein (HDL) cholesterol mass ratOrdered By: Kevin Messina on 12-26-2022 Cholesterol.total/Choles terol in HDL [Mass ratio] 5.0 {ratio} <5.0 [facility] Sodium [Moles/volume] in Ser um or PlasmaOrdered By: Kevin Messina on 12-26-2022 Sodium [Moles/Vol] 139 mmol/L 136-145 [facility] Triglyceride [Mass/volume] i n Serum or PlasmaOrdered By: Kevin Messina on 12-26-2022 Triglyceride [Mass/Vol] 145 mg/dL 0-149 [facility] Comment on above: TRIG ATP III CLASSIF ICATIONTRIG less than 150 mg/dL NormalTRIG 150-199 mg/dL Borderline highTRIG 200-500 mg/dL High TRIG greater than 500 mg/dL Very highStandard traceable to the Center for Disease Conrtrol and Prevention (CDC) test method. Urea nitrogen [Mass/volume] in Serum or PlasmaOrdered By: Kevin Messina on 12-26-2022 Urea nitrogen [Mass/Vol] 11 mg/dL 7- [facility] WBC Auto (Bld) [#/Vol]Ordere d By: Kevin Messina on 12-26-2022 WBC (Bld) [#/Vol] 11.5 10*3/uL 4.1-10.5 [facility] XR cervical spine LAT/FLX/EX Ton 12-26-2022 XR cervical spine LAT/FLX/EXT [facility] [place] [address] XRay Report Signed Patient: Segun Fuentes MR#: [id number] : 1975 Acct:[id number] Age/Sex: 47 / M ADM Date: 12/26/22 [...] Aamir Joseph M.D.12/26/2022 4:37 PM Dictation Location: [place] [address] Transcribed By: [facility] 12/26/22 1637 Dictated By: Aamir Joseph II, MD 12/26/22 1634 Signed By: 12/26/22 1637 Normal [facility] CBC AUTO DIFFon 12-04-2022 BASO # 0.1 103/ul Normal 0.0-0.1 [facility] Comment on above: Performed By: #### C BC #### [facility] [address] [address] [address] Mireya Bliss Basophils/100 WBC (Bld) 0.7 % Normal 0.2-2.0 [facility] Comment on above: Performed By: #### C BC #### [facility] [address] [place] [address] Dr. Mireya Bliss EO # 0.1 103/ul Normal 0.0-0.7 [facility] Comment on above: Performed By: #### C BC #### [facility] [address] [place] [address] Dr. Mireya Bliss Eosinophils/100 WBC (Bld) 0.7 % Critically low 0.9-7.0 [facility] Comment on above: Performed By: #### C BC #### [facility] [address] [place] [address] Dr. Mireya Bliss Erythrocyte distribution width (RBC) [Ratio] 13.4 % Normal 11.0-15.0 [facility] Comment on above: Performed By: #### C BC #### [facility] [address] [place] [address] Dr. Mireya Bliss Hematocrit (Bld) [Volume fraction] 39.5 % Critically low 42.0-54.0 [facility] Comment on above: Performed By: #### C BC #### [facility] [address] [place] [address] Dr. Mireya Bliss Hemoglobin (Bld) [Mass/Vol] 13.7 g/dL Critically low 14.0-18.0 [facility] Comment on above: Performed By: #### C BC #### [facility] [address] [place] [address] Dr. Mierya Bliss IG # 0.04 10e3/ul Critically high 0.00-0.03 [facility] Comment on above: Performed By: #### C BC #### [facility] [address] [place] [address] Dr. Mireya Bliss IG % 0.3 % Normal 0.0-0.5 [facility] Comment on above: Performed By: #### C BC #### [facility] [address] [place] [address] Dr. Mireya Bliss LYMPH # 2.8 103/ul Normal 1.2-3.8 [facility] Comment on above: Performed By: #### C BC #### [facility] [address] [place] [address] Dr. Mireya Bliss Lymphocytes/100 WBC (Bld) 23.6 % Normal 20.5-60.0 [facility] Comment on above: Performed By: #### C BC #### [facility] [address] [place] [address] Dr. Mireya Bliss MANUAL DIFF REQ NO Normal [facility] Comment on above: Performed By: #### C BC #### [facility] [address] [place] [address] Dr. Mireya Bliss MCH (RBC) [Entitic mass] 30.2 pg Normal 25.9-34.0 [facility] Comment on above: Performed By: #### C BC #### [facility] [address] [place] [address] Dr. Mireya Bliss MCHC (RBC) [Mass/Vol] 34.7 g/dL Normal 29.9-35.2 [facility] Comment on above: Performed By: #### C BC #### [facility] [address] [place] [address] Dr. Mireya Bliss MCV (RBC) [Entitic vol] 87.2 fL Normal 80.0-94.0 [facility] Comment on above: Performed By: #### C BC #### [facility] [address] [place] [address] Dr. Mireya Bliss MONO # 0.9 103/ul Critically high 0.3-0.8 [facility] Comment on above: Performed By: #### C BC #### [facility] [address] [place] [address] Dr. Mireya Bliss Monocytes/100 WBC (Bld) 7.2 % Normal 1.7-12.0 [facility] Comment on above: Performed By: #### C BC #### [facility] [address] [place] [address] Dr. Mireya Bliss NEUT # 7.9 103/ul Critically high 1.4-6.5 [facility] Comment on above: Performed By: #### C BC #### [facility] [address] [address] [address] Mireya Bliss Neutrophils/100 WBC (Bld) 67.5 % Normal 43.0-75.0 [facility] Comment on above: Performed By: #### C BC #### [facility] [address] [address] [address] Mireya Bliss Platelet mean volume (Bld) [Entitic vol] 8.5 fL Critically low 9.5-13.5 [facility] Comment on above: Performed By: #### C BC #### [facility] [address] [address] [address] Mireya Bliss PLT 278 103/ul Normal 150-450 [facility] Comment on above: Performed By: #### C BC #### [facility] [address] [address] [address] Mireya Bliss RBC 4.53 106/ul Critically low 4.70-6.10 [facility] Comment on above: Performed By: #### C BC #### [facility] [address] [address] [address] Mireya Bliss WBC 11.8 103/ul Critically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 End: 12-26-2022 Patient encounter procedure DO Kevin Oberer Work Phone: [facility] Start: 12-26-2022 End: 12-26-2022 ambulatory Kevin Obbrando Facility:[facility] Start: 12-26-2022 Office outpatient vi sit 25 minutes Kevin Obbrando [facility] Start: 12-04-2022 End: 12-04-[address] KEVIN MESSINA Facility:[facility] Start: 06-28-2022 End: 06-28-2022 ambulatory Kevin Oberenicloe Other [facility] Other Start: 06-28-2022 Encounter for genera l adult medical examination without abnormal findings Kevin Oberenicole [facility] Start: 06-28-2022 Office outpatient vi sit 40 minutes Kevin Obbrando [facility] Start: 06-10-2022 End: 06-10-[address] KEVIN MESSINA Facility:[facility] Start: 01-19-2022 End: 01-19-[address] AAMIR HUNTER Facility:[facility] Start: 01-12-2022 End: 01-12-2022 ambulatory Kevin Messina Facility:[facility] Start: 01-12-2022 Encounter for genera l adult medical examination without abnormal findings Kevin Oberenicole [facility] Start: 12-16-2021 End: 12-16-2021 ambulatory Kevin Obbrando Other [facility] Other Start: 12-16-2021 Telephone encounter Kevin Oberer [facility] Start: 12-14-2021 End: 12-14-2021 ambulatory Kevin Oberer Other [facility] Other Start: 12-14-2021 Office outpatient vi sit 25 minutes Kevin Oberer [facility] Start: 12-14-2021 Physical examination Kevin Oberer [facility] Procedures Date Procedure Procedure Detail Performing Clinician Start: 12-26-2022 X-ray of cervical spine DO Kevin Oberer Work Phone: Immunizations Immunization Date Immunization Notes Care Provider Vaughn broussard 09-30-2003 tetanus toxoid, adsorbed Kevin Oberer Other [facility] Other NEGATED: Highlighted row has not occurred!06-26-2023 influenza, seasonal, injectable Patient Objection Kevin Oberer Other [facility] Other NEGATED: Highlighted row has not occurred!06-28-2022 influenza, injectable, quadrivalent, preservative free Patient Objection Kevin Oberer Other [facility] Other NEGATED: Highlighted row has not occurred!12-15-2020 influenza, seasonal, injectable Patient Objection Kevin Oberer Other [facility] Other NEGATED: Highlighted row has not occurred!02-26-2019 influenza, seasonal, injectable Patient Objection Kevin Oberer Other [facility] Other Payers Date Payer Category Payer Self-pay 1975 Unknown [id number] 2.16.84 [id number] 1975 Unknown [id number] 2.16.84 [id number] 1975 Unknown [id number] 2.16.84 [id number] 1957 Unknown [id number] 2. [id number] Unknown [id number] 2.16.8 [id number] Unknown [id number] 2.16.8 [id number] Social History Date Type Detail Facility Unknown if ever smoked [facility] Other Sex Assigned At Sex Assigned At Bir th [facility] Other Start: 1975 Sex Assigned At Male F [facility] Evaluation note 06-26-2023 Note Date & Type [...] and sooner as needed or pending above. [facility] Other Evaluation note 12-26-2022 Note Date & [...] - R58) Cause was unknown, spontaneously resolved. [place] emergency room bleeding labs were negative. Nov, [...] RTO pending above and sooner as needed. [facility] Other Evaluation note 06-28-2022 Note Date & [...] We will continue to fill out his [facility] paperwork yearly and not due today. We will also schedule 6-month follow-ups to satisfy his twice yearly visit work requirement Jun, Family history of cardiovascular disease (ICD-10 - Z82.49) We again discussed whether to refer him to cardiology. He has family history of heart disease, he smokes. He would like to do so. Refer to [facility] for cardiac screening consult. Discussed I cannot [...] A1c (fasting hyperglycemia) and sooner as needed. [facility] Other Evaluation note 12-16-2021 Note Date & Type Note Facility 12-16-2021 Evaluation note Encounter Date Diagnosis Assessment Notes Nov, Cough (ICD-10 - R05.9) Nov, Smoker (ICD-10 - F17.200) [facility] Other Evaluation note 12-14-2021 Note Date & [...] hepatic panel, lipid profile. Refer to [facility] for cardiac risk/screening consult and to see whether they want to pursue stress test versus other work-up. Nov, Smoker (ICD-10 - F17.200) Discussed overwhelmingly his biggest cardiovascular and pulmonary risk factor his is ongoing smoking. I gave him the name of the [employer] to call. Discussed they can give plenty of quit smoking information including hypnotism schedules. I am not sure if they know anything about the laser treatments he tried before. I do not. He can also check at work. I offered referral to [facility] quit smoking program and he declined. I [...] Please send today's EMR note to [facility] Other Evaluation note Note Date & Type Note Facility Evaluation note No Information [facility] Other Evaluation note Note Date & Type Note Facility Evaluation note No assessment information availa ble [facility] Work Phone: History general Narrative - Reported Note Date & Type Note Facility History general Narrative - Reported Type Medical History Acid peptic [id number] Medical History Left epididynocele-2005 Medical History Acne Vulgaris-2006 Medical History Panic disorder-2006 Medical History Osteoarthritis [id number] Medical History GERD, hiatal hernia-2017 Medical History Cluster headaches Medical History Adjustment disorder with mixed anxiety and depressed mood Medical History Seasonal allergic rh initis due to pollen Surgical History Myringotomy as a child Surgical History T&A age 7 Surgical History Right shoulder scope to shave bone spur- [address] Heller ( [place]), GERD 2017 Hospitalization History No know Hospitalization history [facility] Other History general Narrative - Reported Note Date & Type Note Facility History general Narrative - Reported Type Medical History Acid peptic [id number] Medical History Left epididynocele-2006 Medical History Acne Vulgaris-2006 Medical History Panic disorder-2006 Medical History Osteoarthritis [id number] Medical History GERD, hiatal hernia-2017 Medical History Adjustment disorder with mixed anxiety and depressed mood Medical History Seasonal allergic rh initis due to pollen Surgical History Myringotomy as a child Surgical History T&A age 7 Surgical History Right shoulder scope to shave bone spur- [address] Heller ( [place]), GERD 2017 Hospitalization History No know Hospitalization history [facility] Other History general Narrative - Reported Note Date & Type Note Facility History general Narrative - Reported Type Medical History Acid peptic [id number] Medical History Left epididynocele-2006 Medical History Acne Vulgaris-2006 Medical History Panic disorder-2006 Medical History Osteoarthritis [id number] Medical History GERD, hiatal hernia-2017 Medical History Adjustment disorder with mixed anxiety and depressed mood Medical History Seasonal allergic rh initis due to pollen Surgical History Myringotomy as a child Surgical History T&A age 7 Surgical History Right shoulder scope to shave bone spur- [address] Heller ( [place]), GERD 2017 Hospitalization History No Hospitalizati on history information [facility] Other Summary Purpose Family History No Family History Records FoundNo Family History Records FoundNo Family History Records Found Advance Directives Advance Directive Response Recorded Date/ Time Advance Directives No February 14 8 8:31am Reason for Referral Reason CARDIAC SCREENING Diagnosis 1 Family history of ca rdiac disorder in father (Z82.49) Referral Organization [facility] Family Bessy Bearden Referring Provider First Name Kevin Referring Provider Last Name Oberer Referring Provider Specialty Family Prac nivia Referred Organization [facility] Referred Provider Abelardo Baker Referred Address [address],[place],[address] Referred Provider Specialty Cardiac Surg ary Referral Priority Routine General Notes Milagros Fernández Harris 2021 11:05:31 AM >REFERRAL FAXED Reason cardiac work up fami ly HX Diagnosis 1 Family history of ca rdiovascular disease (Z82.49) Referral Organization [facility] Family [address] [address] Referring Provider First Name Kevin Referring Provider Last Name Oberer Referring Provider Specialty Family Prac nivia Referred Organization [facility] Referred Address [address],[place],[address] Referred Provider Specialty Cardiology Referral Priority Routine General Notes Milagros Fernández Harris 2021 02:40:56 PM >REFERRAL SENT Chief Complaint and Reason for Visit Chief Complaint M54.2 Z00.00 Additional Source Comments (unrecognized sect ion and content) No Status Records FoundNo Status Records FoundNo Status Records Found INFORMATION SOURCE (unrecogn ized section and content) DATE CREATED AUTHOR 01/13/2021 [facility] DATE CREATED AUTHOR AUTHOR'S ORGANIZ ATION [facility]/06/2022 [facility] DATE CREATED AUTHOR AUTHOR'S ORGANIZ ATION 12/28/2022 [facility] REASON FOR VISIT (unrecogniz ed section and [...] this week LB, did have Xrays at [facility] with arthritis LB, lots of OA L5-S1, mild L4-L5, pharmacy [facility] [place] LB, 11 pound weight gain, Mood, OA, [...] activities exacerbate - jld, Pt went to [place] ER two weeks ago for the forearm, no diagnosis given - jld, 2018 cervical spine x-rays mild to moderate OA, GI, FMLA, lumbar painSOCIAL NEEDSlabs/neck xray results6 month Follow up, pharmacy: [facility] [place] - jld, flu shot: declines - jld, [...] BE BASED ON THE PRIMARY CLINICAL RECORDS. [employer] provides no warranty or guarantee of the accuracy or completeness of information in this document.
== END 2024-11-18 09:47 | disposition home or self-care (01) ==
LOC: EC 09:47
PROVIDERS: PCP Nurse Practitioner Family; Visit Provider Orthopaedic Surgery
DX: M54.2 Cervicalgia (principal)
CPT/HCPCS: 72052

== ENCOUNTER 2024-12-04 16:44 | Outpatient (RCR) | payer OTHER, SELFPAY | END 2025-01-02 11:48 | disposition home or self-care (01) | LOC: PT 16:44 | PROVIDERS: PCP Nurse Practitioner Family; Visit Provider Orthopaedic Surgery | DX: M54.2 Cervicalgia (principal); M54.12 Radiculopathy, cervical region | CPT/HCPCS: 20561; 97012; 97110; 97140; 97161; 97535 ==

== ENCOUNTER 2024-12-30 08:54 | Outpatient (OUT) | payer OTHER, SELFPAY ==
--- NOTE | 2024-12-30 08:55 | XR_ITS ---
[address] [address] Patient Name: NAI STORM MRN: [id number] date: 1975 Sex: M Assigned Patient Location: Current Patient Location: Accession/Order Number: [id number] Exam Date: 12/30/2024 09:53 Report Date: 12/30/2024 09:54 At the request of: INDIA HOLLY MD Procedure: XR elbow LT min 3V 3 views leftelbow plain film COMPARISON :None HISTORY: Acute left elbow pain which has been worsening over last 2 weeks. No injury ACUTE FINDINGS: None DEGENERATIVE CHANGE: Unremarkable SOFT TISSUE FINDINGS: Unremarkable JOINT EFFUSION: None POSTOP CHANGES: None BONE MINERALIZATION: Adequate XR/XR elbow LT min 3V IMPRESSION: Unremarkable exam Impression dictated by: Stanislaw Collier M.D.12/30/2024 9:54 AM Dictation Location: [place] [address] Electronically authenticated by: [id number] Y Date: 12/30/2024 09:54
--- OUTSIDE RECORDS SUMMARY | 2024-12-30 09:18 | XMS_ITS | CCD ---
Author Organization [facility] Care Team Providers Care Timber Robber Name Role Phone Kevin Messina Unavailable DR AAMIR HUNTER Admitting Unavailable DALE, DR AAMIR Sainz Attending Unavailable SIDDHARTH, DR ARNDT Primary Care Unavailable DALE, DR AAMIR Sainz Consulting Unavailable SIDDHARTH, DR ARNDT Primary Care Unavailable ROBBI ., THU Admitting Unavailable ROBBI ., THU Attending Unavailable CASEY, DR INDIA Sainz Consulting Unavailable MARY ., PENNIE LARSON Consulting Unavaildc MESSINA, DR ARNTD Primary Care Unavailable SANDRITA FERRARA Admitting Unavailable SANDRITA FERRARA Attending Unavailable SANDRITA FERRARA Consulting Unavailable Kevin Messina Primary Care Unavailable Kevin Messina Attending Unavailable Kevin Messina Admitting Unavailable Kevin Messina Attending Unavailable Kevin Messina Admitting Unavailable Kevin Messina Primary Care Unavailable DO Kevin Messina Primary Care Provider DO Kevin Messina Attending Provider Sonal Luna MD Unavailable Christopher Hernandez MD Primary Care Provider SEDA GROVES Attending Unavailable SONAL LUNA Referring Unavailable Medications Current Medications Medication Drug Class(es) Dates Sig (Normalized) Sig (Original) Acetaminophen (4 sources) Acetaminophen Ac tive omeprazole 40 mg delayed release oral capsule (3 sources) Proton Pump Inhibitor take 1 capsule by mouth before mealtime omeprazole (PriLOSEC) [address] capsule Take 40 mg by mouth in the morning. Take before meals. Do not crush or chew.. Active 12 hr orphenadrine citrate 100 mg extended release oral tablet (3 sources) Muscle Relaxant take 1 tablet by mouth twice daily as needed for muscle spasms, then take 1 tablet by mouth every twelve hours as needed for muscle spasms orphenadrine (Norflex) 100 MG 12 hr tablet Take 100 mg by mouth 2 (two) times a day as needed for muscle spasms Do not crush, chew, or split. Active Problems Active Problems Problem Classification Problem Date [...] Nonulcer dyspepsia; Translations: [Functional dyspepsia] Episodic Other ear and sense organ disorders (2 sources) Conductive hearing loss, unilateral, left ear, with unrestricted hearing on the contralateral side; Translations: [Conductive hearing loss, unilateral] 11-27-2024 Chronic Other nutritional; endocrine; and metabolic disorders (1 source) Abnormal weight gain Episodic Other skin disorders (3 sources) Acne vulgaris; Translations: [Acne vulgaris] Episodic Other upper respiratory disease (3 sources) Allergic rhinitis due to pollen; Translations: [Allergic rhinitis due to pollen] Chronic Otitis media and related conditions (4 sources) Otitis media of left ear; Translations: [Unspecified nonsuppurative otitis media, left ear] 11-27-2024 Episodic Residual codes; unclassified (7 sources) FH: Cardiovascular [...] Spondylosis; intervertebral disc disorders; other back problems (8 sources) Lumbago with sciatica, right side; Translations: [...] Reference Range Facility A1C with Estimated Average Carmela silva 12-26-2022 Glucose [Mass/Vol] 114 mg/dL Normal [facility] Comment on above: Order Comment: Reaso n for Exam Adult general medical examination Result Comment: PERF ORMED BY: [facility] [address] [place] [address] PATHOLOGIST QUILL BUNCHER AND SORTER MOISES SHEPHERD M.D. Performed By: #### A 1C [facility] eA ####[facility] [id number] [facility] HbA1c (Bld) [Mass fraction] 5.6 % Normal 4.3-5.6 [facility] Comment on above: Order Comment: Reaso n for Exam Adult general medical examination Result Comment: Incr eased risk for diabetes: 5.7 - 6.4 diabetes: >6.4 glycemic control for adults with diabetes: <7.0 Performed By: #### A 1C [facility] eA ####[place] [id number] [place] [id number] [facility] Alanine aminotransferase [En zymatic activity/volume] in Serum or PlasmaOrdered By: Kevin Messina on 12-26-2022 ALT [Catalytic activity/Vol] 36 U/L [facility] Albumin [Mass/volume] in Ser um or Plasma by Bromocresol green (BCG) dye binding methoOrdered By: Kevin Messina on 12-26-2022 Albumin BCG dye [Mass/Vol] 4.3 g/dL 3.5-5.7 [facility] Alkaline phosphatase [Enzyma tic activity/volume] in Serum or PlasmaOrdered By: Kevin Messina on 12-26-2022 ALP [Catalytic activity/Vol] 66 U/L 34-104 [facility] Aspartate aminotransferase [ Enzymatic activity/volume] in Serum or PlasmaOrdered By: Kevin Messina on 12-26-2022 AST [Catalytic activity/Vol] 23 U/L 13-39 [facility] Basic Metabolic Panelon 12-01 Anion gap [Moles/Vol] 9.0 mmol/L Normal 6.0-15.0 [facility] Comment on above: Order Comment: NOT F ASTING Reason for Exam Adult general medical examination Performed By: #### B MP, HEPATIC, LIPID #### [facility] [address] [place] [id number] [facility] Calcium [Mass/Vol] 8.9 mg/dL Normal 8.6-10.[address] [facility] Comment on above: Order Comment: NOT F ASTING Reason for Exam Adult general medical examination Performed By: #### B MP, HEPATIC, LIPID #### [facility] [address] Chloride [Moles/Vol] 106 mmol/L Normal 98-107 [facility] Comment on above: Order Comment: NOT F ASTING Reason for Exam Adult general medical examination Performed By: #### B MP, HEPATIC, LIPID #### [facility] [address] CO2 [Moles/Vol] 27.9 mmol/L Normal 21.0-31.0 [facility] Comment on above: Order Comment: NOT F ASTING Reason for Exam Adult general medical examination Performed By: #### B MP, HEPATIC, LIPID #### [facility] [address] Creatinine [Mass/Vol] 0.82 mg/dL Normal 0.70-1.30 [facility] Comment on above: Order Comment: NOT F ASTING Reason for Exam Adult general medical examination Performed By: #### B MP, HEPATIC, LIPID #### [facility] [address] [place] [id number] [place] GFR/1.73 sq M.predicted MDRD (S/P/Bld) [Vol rate/Area] mL/min/{1.73_m2} [facility] Comment on above: Order Comment: NOT F ASTING Reason for Exam Adult general medical examination Performed By: #### B MP, HEPATIC, LIPID #### [facility] [address] [place] [id number] [place] Glucose [Mass/Vol] 96 mg/dL Normal 70-[address] [facility] Comment on above: Order Comment: NOT F ASTING Reason for Exam Adult general medical examination Result Comment: [facility] Glucose Reference Range is dependent on time and content of last meal. Glucose of more than 200 mg/dL in a nonstressed, ambulatory subject supports the diagnosis of Diabetes Mellitus. ADA recommended reference range Performed By: #### B MP, HEPATIC, LIPID #### [facility] [address] Potassium [Moles/Vol] 3.9 mmol/L Normal 3.5-5.1 [facility] Comment on above: Order Comment: NOT F ASTING Reason for Exam Adult general medical examination Performed By: #### B MP, HEPATIC, LIPID #### [facility] [address] Sodium [Moles/Vol] 139 mmol/L Normal 136-[address] [facility] Comment on above: Order Comment: NOT F ASTING Reason for Exam Adult general medical examination Performed By: #### B MP, HEPATIC, LIPID #### [facility] [address] Urea nitrogen [Mass/Vol] 11 mg/dL Normal 7-25 [facility] Comment on above: Order Comment: NOT F ASTING Reason for Exam Adult general medical examination Performed By: #### B MP, HEPATIC, LIPID #### [facility] [address] Basophils Auto (Bld) [#/Vol] Ordered By: Kevin Messina on 12-26-2022 Basophils (Bld) [#/Vol] 0.1 10*3/uL 0.0-0.2 [facility] Basophils/100 WBC Auto (Bld) Ordered By: Kevin Objoanner on 12-26-2022 Basophils/100 WBC (Bld) 0.7 % . [facility] Bilirubin.direct [Mass/volum e] in Serum or PlasmaOrdered By: Kevin Obbrando on 12-26-2022 Bilirubin.direct [Mass/Vol] 0.10 mg/dL 0.03-0.18 [facility] Bilirubin.total [Mass/volume ] in Serum or PlasmaOrdered By: Kevin Objoanner on 12-26-2022 Bilirubin [Mass/Vol] 0.3 mg/dL 0.3-1.0 [facility] Calcium [Mass/volume] in Ser um or PlasmaOrdered By: Kevin Messina on 12-26-2022 Calcium [Mass/Vol] 8.9 mg/dL 8.6-10.[address] [facility] Carbon dioxide, total [Moles /volume] in Serum or PlasmaOrdered By: Kevin Messina on 12-26-2022 CO2 [Moles/Vol] 27.9 mmol/L 21.0-31.0 [facility] Chloride [Moles/volume] in S samuel or PlasmaOrdered By: Kevin Messina on 12-26-2022 Chloride [Moles/Vol] 106 mmol/L 98-107 [facility] Cholesterol [Mass/volume] in Serum or PlasmaOrdered By: Kevin Messina on 12-26-2022 Cholesterol [Mass/Vol] 217 mg/dL 140-200 [facility] Comment on above: Chol less than 200 m g/dl low riskChol 201-239 mg/dl borderline riskChol 240 mg/dl and greater high risk Cholesterol in LDL Calc [Mas s/Vol]Ordered By: Kevin Messina on 12-26-2022 Cholesterol in LDL [Mass/Vol] 145 mg/dL 0-100 [facility] Comment on above: LDL ATP III CLASSIFI CATIONLDL less than 100 mg/dL OptimalLDL 100-129 mg/dL Near or above optimalLDL 130-159 mg/dL Borderline highLDL 160-189 mg/dL HighLDL greater than 189 mg/dL Very high Cholesterol in VLDL Calc [Ma ss/Vol]Ordered By: Kevin Messina on 12-26-2022 Cholesterol in VLDL [Mass/Vol] 29 mg/dL [facility] Complete Blood Count Auto Di ffon 12-26-2022 Basophils (Bld) [#/Vol] 0.1 10*3/uL Normal 0.0-0.2 [facility] Comment on above: Order Comment: Reaso n for Exam Adult general medical examination Result Comment: PERF ORMED BY: [address] [place] [address] PATHOLOGIST QUILL BUNCHER AND SORTER MOISES SHEPHERD M.D. Performed By: #### C BC #### [facility] [address] [place] [address] [place] Basophils/100 WBC (Bld) 0.7 % Normal . [facility] Comment on above: Order Comment: Reaso n for Exam Adult general medical examination Performed By: #### C BC #### [facility] [address] [place] [address] [place] Eosinophils (Bld) [#/Vol] 0.4 10*3/uL Normal 0.0-0.45 [facility] Comment on above: Order Comment: Reaso n for Exam Adult general medical examination Performed By: #### C BC #### [facility] [address] Eosinophils/100 WBC (Bld) 3.2 % Normal . [facility] Comment on above: Order Comment: Reaso n for Exam Adult general medical examination Performed By: #### C BC #### [address] Erythrocyte distribution width (RBC) [Ratio] 14.2 % Normal 12.0-14.8 [facility] Comment on above: Order Comment: Reaso n for Exam Adult general medical examination Performed By: #### C BC #### [address] Hematocrit (Bld) [Volume fraction] 44.8 % Normal 38.8-50.0 [facility] Comment on above: Order Comment: Reaso n for Exam Adult general medical examination Performed By: #### C BC #### [facility] [address] [place] [address] [place] Hemoglobin (Bld) [Mass/Vol] 14.9 g/dL Normal 13.0-17.0 [facility] Comment on above: Order Comment: Reaso n for Exam Adult general medical examination Performed By: #### C BC #### [place] [address] [place] Lymphocytes (Bld) [#/Vol] 3.1 10*3/uL Normal 1.00-4.8 [facility] Comment on above: Order Comment: Reaso n for Exam Adult general medical examination Performed By: #### C BC #### [facility] [address] [place] [address] [place] Lymphocytes/100 WBC (Bld) 27.1 % Normal . [facility] Comment on above: Order Comment: Reaso n for Exam Adult general medical examination Performed By: #### C BC #### [address] MCH (RBC) [Entitic mass] 30.0 pg Normal 27.5-35.2 [facility] Comment on above: Order Comment: Reaso n for Exam Adult general medical examination Performed By: #### C BC #### [facility] [address] [place] [address] MCV (RBC) [Entitic vol] 90.2 fL Normal 83.5-101 [facility] Comment on above: Order Comment: Reaso n for Exam Adult general medical examination Performed By: #### C BC #### [address] Mean Corpuscular HGB Conc 33.2 g/dL Normal 32.5-35.6 [facility] Comment on above: Order Comment: Reaso n for Exam Adult general medical examination Performed By: #### C BC #### [facility] [address] [place] [address] Monocytes (Bld) [#/Vol] 1.0 10*3/uL High 0.0-0.8 [facility] Comment on above: Order Comment: Reaso n for Exam Adult general medical examination Performed By: #### C BC #### [address] Monocytes/100 WBC (Bld) 8.6 % Normal . [facility] Comment on above: Order Comment: Reaso n for Exam Adult general medical examination Performed By: #### C BC #### [place] [address] [place] Neutrophils (Bld) [#/Vol] 7.0 10*3/uL Normal 1.8-7.7 [facility] Comment on above: Order Comment: Reaso n for Exam Adult general medical examination Performed By: #### C BC #### [facility] [address] [place] [address] [place] Neutrophils/100 WBC (Bld) 60.4 % Normal . [facility] Comment on above: Order Comment: Reaso n for Exam Adult general medical examination Performed By: #### C BC #### [facility] [address] NRBC% 0.1 /100{WBC} Normal 0-0.5 [facility] Comment on above: Order Comment: Reaso n for Exam Adult general medical examination Performed By: #### C BC #### [facility] [address] Platelet mean volume (Bld) [Entitic vol] 7.2 fL Normal 6.6-10.1 [facility] Comment on above: Order Comment: Reaso n for Exam Adult general medical examination Performed By: #### C BC #### [address] Platelets (Bld) [#/Vol] 307 10*3/uL Normal 150-450 [facility] Comment on above: Order Comment: Reaso n for Exam Adult general medical examination Performed By: #### C BC #### [facility] [address] [place] [address] [place] RBC (Bld) [#/Vol] 4.97 10*6/uL Normal 3.90-5.60 [facility] Comment on above: Order Comment: Reaso n for Exam Adult general medical examination Performed By: #### C BC #### [facility] [address] [place] [address] WBC (Bld) [#/Vol] 11.5 10*3/uL High 4.1-10.5 [facility] Comment on above: Order Comment: Reaso n for Exam Adult general medical examination Performed By: #### C BC #### [place] [address] [place] Creatinine [Mass/volume] in Serum or PlasmaOrdered By: Kevin Messina on 12-26-2022 Creatinine [Mass/Vol] 0.82 mg/dL 0.70-1.30 [facility] Eosinophils Auto (Bld) [#/Vo l]Ordered By: Kevin Messina on 12-26-2022 Eosinophils (Bld) [#/Vol] 0.4 10*3/uL 0.0-0.45 [facility] Eosinophils/100 WBC Auto (Bl d)Ordered By: Kevin Messina on 12-26-2022 Eosinophils/100 WBC (Bld) 3.2 % . [facility] Erythrocyte distribution wid th Auto (RBC) [Ratio]Ordered By: Kevin Messina on 12-26-2022 Erythrocyte distribution width (RBC) [Ratio] 14.2 % 12.0-14.8 [facility] Globulin Calc (S) [Mass/Vol] Ordered By: Kevin Messina on 12-26-2022 Globulin (S) [Mass/Vol] 2.6 g/dL [facility] Glucose [Mass/volume] in Ser um or PlasmaOrdered By: Kevin Messina on 12-26-2022 Glucose [Mass/Vol] 96 mg/dL 70-[address] [facility] Comment on above: ADA recommended refe rence rangeRandom Glucose Reference Range is dependent on time and content of last meal. Glucose of more than 200 mg/dL in a nonstressed, ambulatory subject supports the diagnosis of Diabetes Mellitus. Hematocrit Auto (Bld) [Volum e fraction]Ordered By: Kevin Messina on 12-26-2022 Hematocrit (Bld) [Volume fraction] 44.8 % 38.8-50.0 [facility] Hemoglobin [Mass/volume] in BloodOrdered By: Kevin Messina on 12-26-2022 Hemoglobin (Bld) [Mass/Vol] 14.9 g/dL 13.0-17.0 [facility] Hepatic Panelon 12-26-2022 Albumin [Mass/Vol] 4.3 g/dL Normal 3.5-5.[address] [facility] Comment on above: Order Comment: NOT F ASTING Reason for Exam Adult general medical examination Performed By: #### B MP, HEPATIC, LIPID #### [facility] [address] [place] [address] Albumin/Globulin [Mass ratio] 1.7 {ratio} Normal [facility] Comment on above: Order Comment: NOT F ASTING Reason for Exam Adult general medical examination Performed By: #### B MP, HEPATIC, LIPID #### [facility] [address] ALP [Catalytic activity/Vol] 66 U/L Normal 34-104 [facility] Comment on above: Order Comment: NOT F ASTING Reason for Exam Adult general medical examination Performed By: #### B MP, HEPATIC, LIPID #### [facility] [address] ALT [Catalytic activity/Vol] 36 U/L Normal 7-52 [facility] Comment on above: Order Comment: NOT F ASTING Reason for Exam Adult general medical examination Performed By: #### B MP, HEPATIC, LIPID #### [facility] [address] [place] [address] AST [Catalytic activity/Vol] 23 U/L Normal 13-39 [facility] Comment on above: Order Comment: NOT F ASTING Reason for Exam Adult general medical examination Performed By: #### B MP, HEPATIC, LIPID #### [facility] [address] [place] [address] Bilirubin [Mass/Vol] 0.3 mg/dL Normal 0.3-1.0 [facility] Comment on above: Order Comment: NOT F ASTING Reason for Exam Adult general medical examination Performed By: #### B MP, HEPATIC, LIPID #### [facility] [address] [place] [address] [place] Bilirubin,Indirect 0.2 mg/dL Normal [facility] Comment on above: Order Comment: NOT F ASTING Reason for Exam Adult general medical examination Performed By: #### B MP, HEPATIC, LIPID #### [facility] [address] [place] [address] [place] Bilirubin.indirect [Mass/Vol] 0.10 mg/dL Normal 0.03-0.18 [facility] Comment on above: Order Comment: NOT F ASTING Reason for Exam Adult general medical examination Performed By: #### B MP, HEPATIC, LIPID #### [facility] [address] Globulin (S) [Mass/Vol] 2.6 g/dL Normal [facility] Comment on above: Order Comment: NOT F ASTING Reason for Exam Adult general medical examination Performed By: #### B MP, HEPATIC, LIPID #### [facility] [address] Protein [Mass/Vol] 6.9 g/dL Normal 6.4-8.[address] [facility] Comment on above: Order Comment: NOT F ASTING Reason for Exam Adult general medical examination Performed By: #### B MP, HEPATIC, LIPID #### [facility] [address] Laboratory - Chemistry and C hemistry - challengeOrdered By: Kevin Messina on 12-26-2022 GFR/1.73 sq M.predicted MDRD (S/P/Bld) [Vol rate/Area] mL/min/{1.73_m2} [facility] Leukocytes [#/volume] correc nina for nucleated erythrocytes in Blood by Automated counOrdered By: Kevin Messina on 12-26-2022 WBC corrected for nucl RBC Auto (Bld) [#/Vol] 11.5 10*3/uL 4.1-10.5 [facility] Lipid Panelon 12-26-2022 Cholesterol [Mass/Vol] 217 mg/dL High 140-200 [facility] Comment on above: Order Comment: NOT F ASTING Reason for Exam Adult general medical examination Result Comment: Chol less than 200 mg/dl low risk Chol 201-239 mg/dl borderline risk Chol 240 mg/dl and greater high risk Performed By: #### B MP, HEPATIC, LIPID #### [facility] [address] Cholesterol in HDL [Mass/Vol] 43 mg/dL Normal 29-71 [facility] Comment on above: Order Comment: NOT F ASTING Reason for Exam Adult general medical examination Result Comment: HDL CHOL ATP-III CLASSIFICATION Cardiovascular Risk HDL > or equal to 60 mg/dL LOW HDL < 40 mg/dL HIGH Performed By: #### B MP, HEPATIC, LIPID #### [facility] [address] Cholesterol.total/Choles terol in HDL [Mass ratio] 5.0 {ratio} Normal <5.0 [facility] Comment on above: Order Comment: NOT F ASTING Reason for Exam Adult general medical examination Result Comment: PERF ORMED BY: [place] [address] PATHOLOGIST QUILL BUNCHER AND SORTER MOISES SHEPHERD M.D. Performed By: #### B MP, HEPATIC, LIPID #### [facility] [address] LDL Cholesterol,Calculated 145 mg/dL High 0-100 [facility] Comment on above: Order Comment: NOT F ASTING Reason for Exam Adult general medical examination Result Comment: LDL ATP III CLASSIFICATION LDL less than 100 mg/dL Optimal LDL 100-129 mg/dL Near or above optimal LDL 130-159 mg/dL Borderline high LDL 160-189 mg/dL High LDL greater than 189 mg/dL Very high Performed By: #### B MP, HEPATIC, LIPID #### [facility] [address] Triglyceride w/Reflex 145 mg/dL Normal 0-149 [facility] Comment on above: Order Comment: [...] By: #### B MP, HEPATIC, LIPID #### [facility] [address] VLDL CHOLESTEROL 29 mg/dL Normal [facility] Comment on above: Order Comment: NOT F ASTING Reason for Exam Adult general medical examination Performed By: #### B MP, HEPATIC, LIPID #### [facility] [address] Lymphocytes Auto (Bld) [#/Vo l]Ordered By: Kevin Messina on 12-26-2022 Lymphocytes (Bld) [#/Vol] 3.1 10*3/uL 1.00-4.8 [facility] Lymphocytes/100 WBC Auto (Bl d)Ordered By: Kevin Messina on 12-26-2022 Lymphocytes/100 WBC (Bld) 27.1 % . [facility] MCH Auto (RBC) [Entitic mass ]Ordered By: Kevin Messina on 12-26-2022 MCH (RBC) [Entitic mass] 30.0 pg 27.5-35.2 [facility] MCHC Auto (RBC) [Mass/Vol]Or dered By: Kevin Messina on 12-26-2022 MCHC (RBC) [Mass/Vol] 33.2 g/dL 32.5-35.6 [facility] MCV Auto (RBC) [Entitic vol] Ordered By: Kevin Messina on 12-26-2022 MCV (RBC) [Entitic vol] 90.2 fL 83.5-101 [facility] Monocytes Auto (Bld) [#/Vol] Ordered By: Kevin Messina on 12-26-2022 Monocytes (Bld) [#/Vol] 1.0 10*3/uL 0.0-0.8 [facility] Monocytes/100 WBC Auto (Bld) Ordered By: Kevin Messina on 12-26-2022 Monocytes/100 WBC (Bld) 8.6 % . [facility] Neutrophils Auto (Bld) [#/Vo l]Ordered By: Kevin Messina on 12-26-2022 Neutrophils (Bld) [#/Vol] 7.0 10*3/uL 1.8-7.7 [facility] Neutrophils/100 WBC Auto (Bl d)Ordered By: Kevin Messina on 12-26-2022 Neutrophils/100 WBC (Bld) 60.4 % . [facility] No Panel InformationOrdered By: Kevin Messina on 12-26-2022 Pharmacy Creatinine Clearance (Chem N/A [facility] Nucleated erythrocytes [Pres ence] in Blood by Automated countOrdered By: Kevin Messina on 12-26-2022 Nucleated RBC Auto Ql (Bld) 0.1 /100{WBC} 0-0.5 [facility] Platelet mean volume Auto (B ld) [Entitic vol]Ordered By: Kevin Messina on 12-26-2022 Platelet mean volume (Bld) [Entitic vol] 7.2 fL 6.6-10.1 [facility] Platelets Auto (Bld) [#/Vol] Ordered By: Kevin Messina on 12-26-2022 Platelets (Bld) [#/Vol] 307 10*3/uL 150-450 [facility] Potassium [Moles/volume] in Serum or PlasmaOrdered By: Kevin Messina on 12-26-2022 Potassium [Moles/Vol] 3.9 mmol/L 3.5-5.1 [facility] Protein [Mass/volume] in Ser um or PlasmaOrdered By: Kevin Messina on 12-26-2022 Protein [Mass/Vol] 6.9 g/dL 6.4-8.[address] [facility] RBC Auto (Bld) [#/Vol]Ordere d By: Kevin Messina on 12-26-2022 RBC (Bld) [#/Vol] 4.97 10*6/uL 3.90-5.60 [facility] Serum or plasma albumin/glob ulin mass ratioOrdered By: Kevin Messina on 12-26-2022 Albumin/Globulin [Mass ratio] 1.7 {ratio} [facility] Serum or plasma anion gap de terminationOrdered By: Kevin Messina on 12-26-2022 Anion gap [Moles/Vol] 9.0 mmol/L 6.0-15.0 [facility] Serum or plasma high density lipoprotein (HDL) cholesterol measurementOrdered By: Kevin Messina on 12-26-2022 Cholesterol in HDL [Mass/Vol] 43 mg/dL 29-71 [facility] Comment on above: HDL CHOL ATP-III CLA SSIFICATION Cardiovascular RiskHDL > or equal to 60 mg/dL LOWHDL < 40 mg/dL HIGH Serum or plasma non-glucuron idated bilirubin measurement (mass/volume)Ordered By: Kevin Messina on 12-26-2022 Bilirubin.indirect [Mass/Vol] 0.2 mg/dL [facility] Serum or plasma total choles terol/high density lipoprotein (HDL) cholesterol mass ratOrdered By: Kevin Messina on 12-26-2022 Cholesterol.total/Choles terol in HDL [Mass ratio] 5.0 {ratio} <5.0 [facility] Sodium [Moles/volume] in Ser um or PlasmaOrdered By: Kevin Messina on 12-26-2022 Sodium [Moles/Vol] 139 mmol/L 136-[address] [facility] Triglyceride [Mass/volume] i n Serum or PlasmaOrdered By: Kevin Messina on 12-26-2022 Triglyceride [Mass/Vol] 145 mg/dL 0-149 [facility] Comment on above: TRIG ATP III CLASSIF ICATIONTRIG less than 150 mg/dL NormalTRIG 150-199 mg/dL Borderline highTRIG 200-500 mg/dL High TRIG greater than 500 mg/dL Very highStandard traceable to the Center for Disease Conrtrol and Prevention (CDC) test method. Urea nitrogen [Mass/volume] in Serum or PlasmaOrdered By: Kevin Messina on 12-26-2022 Urea nitrogen [Mass/Vol] 11 mg/dL 7-25 [facility] WBC Auto (Bld) [#/Vol]Ordere d By: Kevin Messina on 12-26-2022 WBC (Bld) [#/Vol] 11.5 10*3/uL 4.1-10.5 [facility] XR cervical spine LAT/FLX/EX Ton 12-26-2022 XR cervical spine LAT/FLX/EXT [facility] [place] [address] XRay Report Signed Patient: Segun Fuentes MR#: [id number] 450 : 1975 Acct:[id number] Age/Sex: 47 / M ADM Date: 12/26/22 [facility]: Type: [facility] Attending Dr: Kevin Messina DO Copies to: [...] Aamir Joseph M.D.12/26/2022 4:37 PM Dictation Location: [place] [address] Transcribed By: [facility] 12/26/22 163 Dictated By: Aamir Joseph II, MD 12/26/22 1634 Signed By: 12/26/22 1637 [facility] CBC AUTO DIFFon 12-04-2022 BASO # 0.1 103/ul Normal 0.0-0.1 [facility] Comment on above: Performed By: #### C BC #### [facility] [address] [place] [address] Dr. Mireya Bliss Basophils/100 WBC (Bld) 0.7 % Normal 0.2-2.0 [facility] Comment on above: Performed By: #### C BC #### [facility] [address] [place] [address] Dr. Mireya Bliss EO # 0.1 103/ul Normal 0.0-0.7 [facility] Comment on above: Performed By: #### C BC #### [facility] [address] [place] [address] Dr. Mireya Bliss Eosinophils/100 WBC (Bld) 0.7 % Critically low 0.9-7.0 [facility] Comment on above: Performed By: #### C BC #### [facility] [address] [place] [address] Dr. Mireya Bliss Erythrocyte distribution width (RBC) [Ratio] 13.4 % Normal 11.0-15.0 [facility] Comment on above: Performed By: #### C BC #### [facility] [address] [address] [address] Mireya Bliss Hematocrit (Bld)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 Oberer Other [facility] 06-26-2023 15:00-0400 Body mass index (BMI) [Ratio] 26.45 kg/m2 Kevin Oberer Other [facility] 06-26-2023 15:00-0400 Body temperature 98.4 [degF] Kevin Oberer Other [facility] 06-26-2023 15:00-0400 Body weight 74.35 kg Kevin Oberer Other [facility] 06-26-2023 15:00-0400 Diastolic blood pressure 71 mm[Hg] Kevin Oberer Other [facility] 06-26-2023 15:00-0400 Respiratory rate 16 /min Kevin Oberer Other [facility] 06-26-2023 15:00-0400 SaO2% (BldA) [Mass fraction] 97 % Kevin Oberer Other [facility] 06-26-2023 15:00-0400 Systolic blood pressure 112 mm[Hg] Kevin Oberer Other [facility] 12-26-2022 14:15-0400 Body height 167.64 cm Kevin Oberer Other [facility] 12-26-2022 14:15-0400 Body mass index (BMI) [Ratio] 26.39 kg/m2 Kevin Oberer Other [facility] 12-26-2022 14:15-0400 Body temperature 98.1 [degF] Kevin Oberer Other [facility] 12-26-2022 14:15-0400 Body weight 74.16 kg Kevin Oberer Other [facility] Other 12-26-2022 14:15-0400 Diastolic blood pressure 86 mm[Hg] Kevin Oberer Other [facility] 12-26-2022 14:15-0400 Respiratory rate 16 /min Kevin Oberer Other [facility] Other 12-26-2022 14:15-0400 SaO2% (BldA) [Mass fraction] 96 % Kevin Oberer Other [facility] 12-26-2022 14:15-0400 Systolic blood pressure 130 mm[Hg] Kevin Oberer Other [facility] 06-28-2022 11:30-0400 Body height 167.64 cm Kevin Oberer Other [facility] 06-28-2022 11:30-0400 Body mass index (BMI) [Ratio] 25.27 kg/m2 Kevin Oberer Other [facility] 06-28-2022 11:30-0400 Body temperature 97.8 [degF] Kevin Oberer Other [facility] 06-28-2022 11:30-0400 Body weight 71.03 kg Kevin Oberer Other [facility] Other 06-28-2022 11:30-0400 Diastolic blood pressure 68 mm[Hg] Kevin Oberer Other [facility] 06-28-2022 11:30-0400 Respiratory rate 16 /min Kevin Oberer Other [facility] Other 06-28-2022 11:30-0400 SaO2% (BldA) [Mass fraction] 97 % Kevin Oberer Other [facility] 06-28-2022 11:30-0400 Systolic blood pressure 121 mm[Hg] Kevin Oberer Other [facility] 12-14-2021 12:30-0400 Body height 167.64 cm Kevin Oberer Other [facility] 12-14-2021 12:30-0400 Body mass index (BMI) [Ratio] 23.5 kg/m2 Kevin Oberer Other [facility] 12-14-2021 12:30-0400 Body temperature 97.6 [degF] Kevin Oberer Other [facility] 12-14-2021 12:30-0400 Body weight 66.04 kg Kevin Oberer Other [facility] Other 12-14-2021 12:30-0400 Diastolic blood pressure 68 mm[Hg] Kevin Oberer Other [facility] Other 12-14-2021 12:30-0400 Respiratory rate 16 /min Kevin Oberer Other [facility] Other 12-14-2021 12:30-0400 SaO2% (BldA) [Mass fraction] 98 % Kevin Oberer Other [facility] Other 12-14-2021 12:30-0400 Systolic blood pressure 123 mm[Hg] Kevin Oberer Other [facility] Other Encounters Encounter Date Encounter Type Care Provider Facility Start: 11-27-2024 End: 11-27-2024 Office outpatient new 45 minutes Seda Groves MD Work Phone: [facility] Comment on above: Conductive hearing l oss of left ear with unrestricted hearing of right ear (Primary Dx); OME (otitis media with effusion), left; ETD (Eustachian tube dysfunction), left Start: 11-27-2024 End: 11-27-2024 ambulatory SEDA GROVES Not Available Start: 11-27-2024 End: 11-27-2024 [place]uco flowsheet Seda Groves MD Work Phone: [facility] Start: 11-27-2024 End: 11-27-2024 Saulo flowsrina Groves MD Work Phone: [facility] Start: 06-26-2023 End: 06-26-2023 ambulatory Kevin Oberer Other [facility] Other Start: 06-26-2023 Office outpatient vi sit 25 minutes Kevin Oberer [facility] Start: 12-30-2022 End: 12-30-2022 ambulatory Kevin Oberer Other [facility] Other Start: 12-30-2022 Telephone encounter Kevin Oberer [facility] Start: 12-28-2022 End: 12-28-2022 ambulatory Kevin Oberer Other [facility] Other Start: 12-28-2022 Telephone encounter Kevin Oberer [facility] Start: 12-26-2022 End: 12-26-2022 ambulatory DO Kevin Oberer Work Phone: [facility] Work Phone: Start: 12-26-2022 End: 12-26-2022 Patient encounter procedure DO Kevin Oberer Work Phone: [facility] Start: 12-26-2022 End: 12-26-2022 ambulatory Kevin Oberer Facility:[facility] Start: 12-26-2022 Office outpatient vi sit 25 minutes Kevin Oberer [facility] Start: 12-04-2022 End: 12-04-[address] KEVIN OBERER Facility: Start: 06-28-2022 End: 06-28-2022 ambulatory Kevin Oberer Other [facility] Start: 06-28-2022 Encounter for genera l adult medical examination without abnormal findings Kevin Oberer [facility] Start: 06-28-2022 Office outpatient vi sit 40 minutes Kevin Oberer [facility] Start: 06-10-2022 End: 06-10-[address] KEVIN MESSINA Facility:[facility] Start: 01-19-2022 End: 01-19-[address] AAMIR HUNTER Facility:[facility] Start: 01-12-2022 End: 01-12-2022 ambulatory Kevin Oberenicole Facility:[facility] Start: 01-12-2022 Encounter for genera l adult medical examination without abnormal findings Kevin Oberer [facility] Start: 12-16-2021 End: 12-16-2021 ambulatory Kevin Oberer Other [facility] Other Start: 12-16-2021 Telephone encounter Kevin Oberer [facility] Start: 12-14-2021 End: 12-14-2021 ambulatory Kevin Oberer Other [facility] Other Start: 12-14-2021 Office outpatient vi sit 25 minutes Kevin Oberer [facility] Start: 12-14-2021 Physical examination Kevin Oberer [facility] Procedures Date Procedure Procedure Detail Performing Clinician Start: 12-26-2022 X-ray of cervical spine DO Kevin Oberer Work Phone: Plan of Treatment Date Care Activity Detail Author Start: 11-27-2024 End: 11-27-2024 Patient encounter procedure 11/27/2024 3:00 PM EST Office Visit [facility] [address] [id number] Seda Groves MD [address] [address] Arrived [facility] Comment on above: Arrived Immunizations Immunization Date Immunization Notes Care Provider Vaughn [email or web address] 09-30-2003 tetanus toxoid, adsorbed Kevin Oberer Other [facility] Other NEGATED: Highlighted row has not occurred!06-26-2023 influenza, seasonal, injectable Patient Objection Kevin Oberer Other [facility] Other NEGATED: Highlighted row has not occurred!06-28-2022 influenza, injectable, quadrivalent, preservative free Patient Objection Kevin Oberer Other [facility] Other NEGATED: Highlighted row has not occurred!12-15-2020 influenza, seasonal, injectable Patient Objection Kevin Oberer Other [facility] Other NEGATED: Highlighted row has not occurred!02-26-2019 influenza, seasonal, injectable Patient Objection Kevin Oberer Other [facility] Other Payers Date Payer Category Payer [facility] Insurance [employer] [id number] 2022 Self-pay 1975 Unknown [id number] 1975 Unknown [id number] 1975 Unknown [id number] 1975 Unknown [id number] 1259 1959 Unknown [id number] Unknown [id number] 531 Unknown [id number] 531 Social History Date Type Detail Facility Unknown if ever smoked [facility] Other Start: 11-27-2024 Sex Assigned At N [facility] Other Start: 1975 Sex Assigned At Male [facility] Start: 11-27-2024 Tobacco smoking status [facility] Smokes tobacco daily [facility] History of tobacco use Cigarette Smoker [facility] Start: 11-27-2024 Tobacco use and exposure Smokeless tobacco non-user [facility] Start: 11-27-2024 Alcoholic beverage intake Ex-drinker (finding) [facility] Start: 11-27-2024 History of Social function [facility] Start: 1975 Sex assigned at Not on file [facility] Tobacco smoking status [facility] Tobacco smoking consumption unknown [facility] Clinical Notes 12-14-2021 to 11-27-2024 Seda Groves MD - 11/27/2024 3:00 PM EST Note Date & Type Note Facility 11-27-2024 History of Presen t illness Narrative Subjective Patient ID: Segun Fuentes is a 49 y.o. male who presents for Hearing Loss Pt reports a one month h/o left ear fullness and hearing loss. Onset sudden. Had URI sx at the time. H/O tubes as a child. PCP started prednisone 20mg BID x 5 days. Steroids no help. Review of Systems All other systems reviewed and are negative. Family History Problem Relation Name Age of Onset Cancer Mother Leukemia Father Active Ambulatory Problems Diagnosis Date Noted Cervical pain 11/24/2024 Cervical radiculopathy 11/27/2024 Resolved Ambulatory Problems Diagnosis Date Noted No Resolved Ambulatory Problems Past Medical History: Diagnosis Date HL (hearing loss) Past Surgical History: Procedure Laterality Date ADENOIDECTOMY MYRINGOTOMY W/ TUBES X2 as a child TONSILLECTOMY No Known Allergies Current Outpatient Medications on File Prior to Visit Medication Sig Dispense Refill omeprazole (PriLOSEC) [address] capsule Take 40 mg by mouth in the morning. Take before meals. Do not crush or chew.. orphenadrine (Norflex) 100 MG 12 hr tablet Take 100 mg by mouth 2 (two) times a day as needed for muscle spasms Do not crush, chew, or split. No current facility-administered medications on file prior to visit. Objective Last Recorded Vitals Vitals: 11/27/24 1438 BP: 120/81 Pulse: 78 ENT Physical Exam Constitutional Appearance: patient appears well-developed and well-nourished, Head and Face Appearance: head appears normal and face appears atraumatic; Ear Ear Canals: right ear canal normal; Tympanic Membranes: right tympanic membrane normal; Ear comments: LT - OME Nose External Nose: nares patent bilaterally; external nose normal; Internal Nose: nasal mucosa normal; Oral Cavity/Oropharynx Lips: normal; Teeth: normal; Gums: gingiva normal; Tongue: normal; Oral mucosa: normal; Hard palate: normal; Neck Neck: neck normal; neck palpation normal; Thyroid: thyroid normal; Respiratory Inspection: breathing unlabored; normal breathing rate; Auscultation: breath sounds are clear; Cardiovascular Inspection: extremities are warm and well perfused; no peripheral edema present; Auscultation: regular rate and rhythm; Assessment/Plan Diagnoses and all orders for this visit: Conductive hearing loss of left ear with unrestricted hearing of right ear OME (otitis media with effusion), left ETD (Eustachian tube dysfunction), left HL due to OME. Continue flonase and check an audio. LT t-tube if OME persists documented in this encounter [facility] 06-26-2023 Evaluation note Encounter Date Diagnosis Assessment [...] has not been ready to quit smoking. Jun, Migraine with aura and without status [...] and sooner as needed or pending above. [facility] Other 03-27-2023 Evaluation note* Encounter Date Diagnosis Assessment Notes Treatment Notes Treatment Clinical Notes Nov, Cervical spine pain (ICD-10 - M54.2) I think some of his right first rib somatic dysfunction may be cervicogenic. We will have him repeat cervical spine x-rays downstairs on the way out of the office today. Pending results we will determine further work-up or treatment. Nov, Ecchymosis of forear m (ICD-10 - R58) Cause was unknown, spontaneously resolved. [facility] emergency room bleeding labs were negative. Nov, Osteoarthritis of cervical spine determined by x-ray (ICD-10 - M47.812) See dictation above Nov, Osteoarthritis of samina mbar spine (ICD-10 - M47.816) He currently is [...] his physical work. Nov, Migraine with aura a nd without status migrainosus, not intractable (ICD-10 - [...] currently interested in stopping smoking Nov, Fasting hyperglycemi a (ICD-10 - R73.01) As above he will get labs downstairs on the way out of the office today Nov, Other He will today downstairs get the CBC, BMP, hepatic panel, lipid profile, hemoglobin A1c that were due for today's visit. RTO pending above and sooner as needed. [facility] Other 09-27-2022 Evaluation note* Encounter Date Diagnosis Assessment Notes Treatment Notes Treatment Clinical Notes Jun, Migraine with aura a nd without status migrainosus, not intractable (ICD-10 - [...] to pursue that now. Jun, Osteoarthritis of samina mbar spine (ICD-10 - M47.816) We again discussed the chronicity of his OA lumbar spine combined with his physical job. He feels he is doing well with current treatment. He declines physical therapy referral, pain management referral, etc. He will continue with chiropractor. We will continue to fill out his [facility] paperwork yearly and not due today. We [...] stress test. Jun, Smoker (ICD-10 - F17.200) Ag ain encouraged to quit smoking. He could try [...] Healthy diet and weight encouraged Jun, Fasting hyperglycemi a (ICD-10 - R73.01) We will obtain hemoglobin A1c next lab draw Jun, Hypercholesterolemia (ICD-10 - E78.00) Healthy diet, weight loss encouraged. We will repeat lipids next visit and, if needed, calculate CV risk score Jun, Adult general medica l examination (ICD-10 - Z00.00) Jun, Other RTO 6 months preceded by fasting CBC, BMP, hepatic panel, lipid profile, hemoglobin A1c (fasting hyperglycemia) and sooner as needed. [facility] Other 03-17-2022 Evaluation note* Encounter Date Diagnosis Assessment Notes Treatment Notes Treatment Clinical Notes Nov, Cough (ICD-10 - R05.9) Nov, Smoker (ICD-10 - F17.200) [facility] Other 03-15-2022 Evaluation note* Encounter Date Diagnosis Assessment Notes Treatment Notes Treatment Clinical Notes Nov, Osteoarthritis of lumbar spine (ICD-10 [...] I gave him the name of the [place] [facility] to call. Discussed they can give plenty of quit smoking information including hypnotism schedules. I am not sure if they know anything about the laser treatments he tried before. I do not. He can also check at work. I offered referral to [facility] quit smoking program and he declined. I [...] EMR note to [facility] Other Evaluation noteNo InformationNort Crovat Other Evaluation noteNo assessment information available [facility] Work Phone: Evaluqgknp note* Diagnosis Conductive hearing loss of left ear with unrestricted hearing of right ear- Primary OME (otitis media with effusion), left ETD (Eustachian tube dysfunction), left documented in this encounter [facility] N[facility]ative - Reported* Type Description Date Medical History Acid peptic [id number] Medical History Left epididynocele-2006 Medical History Acne Vulgaris-2006 Medical History Panic disorder-2006 Medical History Osteoarthritis [id number] Medical History GERD, hiatal hernia-2017 Medical History Cluster headaches Medical History Adjustment disorder with mixed anxiety and depressed mood Medical History Seasonal allergic rhinitis due t o pollen Surgical History Myringotomy as a child Surgical History T&A age 7 Surgical History Right shoulder scope to shave b one [place] [address] Heller ([place]), GERD 2017 Hospitalization History No know Hospitalization history [facility] Other History general Narrative - Reported* Type Description Date Medical History Acid peptic [id number] Medical History Left epididynocele-2006 Medical History Acne Vulgaris-2006 Medical History Panic disorder-2006 Medical History Osteoarthritis [id number] Medical History GERD, hiatal hernia-2017 Medical History Adjustment disorder with mixed anxiety and depressed mood Medical History Seasonal allergic rhinitis due t o pollen Surgical History Myringotomy as a child Surgical History T&A age 7 Surgical History Right shoulder scope to shave b one spur- [address] Heller ([place]), GERD 2017 Hospitalization History No know Hospitalization history [facility] Other History general Narrative - Reported* Type Description Date Medical History Acid peptic [id number] Medical History Left epididynocele-2005 Medical History Acne Vulgaris-2005 Medical History Panic disorder-2005 Medical History Osteoarthritis [id number] Medical History GERD, hiatal hernia-2017 Medical History Adjustment disorder with mixed anxiety and depressed mood Medical History Seasonal allergic rhinitis due t o pollen Surgical History Myringotomy as a child Surgical History T&A age 7 Surgical History Right shoulder scope to shave b one spur- [address] Heller ([place]), GERD 2017 Hospitalization History No Hospitalization histo ry information [facility] Other Summary Purpose Family History No Family History Records FoundNo Family History Records FoundNo Family History Records FoundNo Family History Records Found Advance Directives No Advanced Directives Records Found Advance Directive Response Recorded Date/ Time Advance Directives No February 14 8 8:31am Reason for Referral Reason CARDIAC SCREENING Diagnosis 1 Family history of ca rdiac disorder in father (Z82.49) [facility] Referring Provider First Name Kevin Referring Provider Last Name Oberer Referring Provider Specialty Family Prac nivia Referred Organization [facility] Referred Provider Abelardo Baker Referred Address [address] [place] [address] [place] [address] Referred Provider Specialty Cardiac Surg ary Referral Priority Routine General Notes Milagros Fernández 2021 11:05:31 AM >REFERRAL FAXED Reason cardiac work up fami ly HX Diagnosis 1 Family history of ca rdiovascular disease (Z82.49) Referral Organization [facility] [address] Referring Provider First Name Kevin Referring Provider Last Name Oberer Referring Provider Specialty Family Prac nivia Referred Organization [facility] Referred Address [address] [place] [address] [address] [place] [address] Referred Provider Specialty Cardiology Referral Priority Routine General Notes Milagros Fernández 2021 02:40:56 PM >REFERRAL SENT Chief Complaint and Reason for Visit Chief Complaint M54.2 Z00.00 Additional Source Comments (unrecognized sect ion and content) No Status Records FoundNo Status Records FoundNo Status Records FoundNo Status Records Found INFORMATION SOURCE (unrecogn ized section and content) DATE CREATED AUTHOR 01/13/2021 Wilner Luevano [facility] DATE CREATED AUTHOR AUTHOR'S ORGANIZ ATION 12/06/2022 [facility] DATE CREATED AUTHOR AUTHOR'S ORGANIZ ATION 12/28/2022 [facility] DATE CREATED AUTHOR AUTHOR'S ORGANIZ ATION 11/29/2024 [facility] EPIC REASON FOR VISIT (unrecogniz ed section and content) Reason Comments Hearing Loss Care Teams (unrecognized sec tion and content) Team Status: Active Member Role Status Dates Kevin Messina , Primary Care Provider Active Team Status: Inactive Member Role Status Dates Kevin Messina , DO Primary Care Provider, Attending Prov ider Active [employer] Relationship Specialty Start Date End Date Christopher Hernandez MD [address] [place] [phone] PCP - General Family Medicine 11/27/24 Sonal Luna MD [address] [place] [id number] Referring Physician Family Medicine 11/19/24 [employer] Relationship Specialty Start Date End Date Sonal Luna MD [address] [place] [id number] Referring Physician Family Medicine 11/19/24 Goals (unrecognized section and content) Goals may [...] BE BASED ON THE PRIMARY CLINICAL RECORDS. [facility] [employer] [facility]. provides no warranty or guarantee of the accuracy or completeness of information in this document.
== END 2024-12-30 08:55 | disposition home or self-care (01) ==
LOC: EC 08:54
PROVIDERS: PCP Nurse Practitioner Family; Visit Provider Orthopaedic Surgery
DX: M25.522 Pain in left elbow (principal)
CPT/HCPCS: 73080